=== PATIENT | female | born 2000 | race Caucasian/White ===

== ENCOUNTER 2025-01-09 10:03 | Outpatient (REF) | payer MEDICAID, SELFPAY ==
[2025-01-09 11:06] LABS: MANUAL DIFF FLAG NO
[2025-01-09 11:09] LABS: Basophils Percent Auto 0.6 % (0-2); Eosinophils Absolute Auto 0.1 X10*3/uL (0.0-0.4); Eosinophils Percent Auto 1.3 % (0-4); Hematocrit 40.9 % (37.0-47.0); Hemoglobin 13.4 g/dl (12.0-16.0); Imm Gran Abs Auto 0.02 X10*3/uL (0.00-0.03); Imm Gran Pct Auto 0.4 % (0.0-0.4); Lymphocytes Absolute Auto 1.8 X10*3/uL (1.2-4.9); Lymphocytes Percent Auto 37.3 % (20-40); Mean Corpuscular HGB Conc 32.8 g/dl (31.0-35.0); Mean Corpuscular Hemoglobin 27.6 pg (27.0-33.0); Mean Corpuscular Volume 84.2 fL (80.0-98.0); Monocytes Absolute Auto 0.4 X10*3/uL (0.1-1.2); Monocytes Percent Auto 8.9 % (2-11); Neutrophils Absolute Auto 2.4 x10*3/uL (2.0-8.3); Neutrophils Percent Auto 51.5 % (45-73); Platelet Count 255 X10*3/uL (160-400); Red Blood Count 4.86 X10*6/uL (4.20-5.50); Red Cell Distribution Width 13.2 % (11.0-16.0); White Blood Count 4.7 X10*3/uL (4.8-10.8)
--- OUTSIDE RECORDS SUMMARY | 2025-01-09 11:14 | XMS_ITS | Encounter Summary ---
Author Organization [employer] Address [address] [place] [address] Care Team Providers Care Charging Car Operator Name Role Phone Merly Lu MD Primary Care Provider +1- [phone] Encounter Details Date Type Department Care Team (Latest Contact Info) Description 01/09/2025 Travel Social History Tobacco Use Types Packs/Day Years Used Date Smoking Tobacco: Never Smokeless Tobacco: Never Alcohol Use Standard Drinks/Week Comments Never 0 (1 standard drink = 0.6 oz pur e alcohol) Alcohol Answer Date Recorded How often do you have a drink containing alcohol ? 1 01/09/2025 Average Number of Drinks Not on file 025 Frequency of Binge Drinking Not on file 12/14 Depression Answer Date Recorded Patient Health Questionnaire-9 Score 8 01/09/2025 Patient Health Questionnaire-9 Score 8 01/09/2025 Last PHQ-9: Questionnaire Data Not on file 0 01/09/2025 Housing Stability Answer Date Recorded What is your housing situation today? I have maggie rogers 04/21/[address] you li ve. Do you have problems with any of the following? None of the above 04/21/2024 Food Insecurity Answer Date Recorded Within the past 12 months, y ou worried that your food would run out before you got money to buy more: Often true 12/26/2024 Within the past 12 months,th e food you bought just didn't last and you didn't have enough money to get more: Often true Transportation Answer Date Recorded In the past 12 months, has l ack of transportation kept you from medical appts, meetings, work or from getting things needed for daily living? No 04/21/2024 Utilities Answer Date Recorded In the past 12 months, has t he electric, gas, oil or water company threatened to shut off services in your home? No 04/21/2024 Depression Answer Date Recorded Patient Health Questionnaire-2 Score 2 01/09/2025 Internet Access Answer Date Recorded Internet Access Q1 Yes 12/26/2024 Internet Access Q2 Not on file 12/26/2024 Comments No Sex and Gender Information Value Date Recorded Sex Assigned at Female 09/08/2022 3:54 PM EDT Legal Sex Female 3:54 PM EDT Gender Identity Female 09/08/2022 3:54 PM EDT Sexual Orientation Bisexual 09/13/2022 4: 13 PM EDT Sexual Orientation Straight 09/13/2022 4: 13 PM EDT documented as of this encounter Plan of Treatment Upcoming Encounters Date Type Department Care Team (Late st Contact Info) Description 01/15/2025 9:00 AM EST Procedure Visit [facility] MEDICINE [address] [place] [address] Erin Abdalla CNM [address] [place] [address] documented as of this encounter Visit Diagnoses Not on filedocumented in this encounter Additional Health Concerns Assessment Noted Time PHQ-9 Depression Total Score: 8 01/09/20 10:09 AM EST documented as of this encounter Care Teams Charging Car Operator Relationship Specialty Start Date End Date Merly Lu MD [address] [place] [address] PCP - General Family Medicine 12/02/24 documented as of this encounter
--- OUTSIDE RECORDS SUMMARY | 2025-01-09 11:14 | XMS_ITS | Encounter Summary ---
Author Organization [employer] Address [address] [place] [address] [address], [place] [address] Care Team Providers Care Earth Science Faculty Member Name Role Phone Merly Lu MD Primary Care Provider [phone]- [phone] Reason for Referral * Consultation (Routine) - Authorized Specialty Diagnoses / Procedures Referred By Candy dyson Referred To Contact Midwifery Diagnoses Family planning Merly Lu MD [address] [place] [address] Phone: tel: fax: Erin Abdalla, [place] [address] [place] [address] Phone: tel: fax: Referral ID Status Reason Start Date Expiration Date Visits Requested Visits Authorized [id number] Authorized Consult and Treat 01/09/2025 01/09/2026 1 1 * Consultation (Routine) - Closed Specialty Diagnoses / Procedures Referred By Contstalin t Referred To Contact Physical Therapy Diagnoses Ankle stiffness, right Merly Lu MD [address] [place] [address] Phone: tel: fax: Referral ID Status Reason Start Date Expiration Date V isits Requested Visits Authorized [id number] Closed Specialty Services Required 01/09/2025 01/09/2026 1 1 * Consultation (Routine) - Authorized Specialty Diagnoses / Procedures Referred By Contstalin t Referred To Contact Behavioral Health Diagnoses Adjustment disorder with mixed anxiety and depressed mood Merly Lu MD [address] [place] [address] Phone: tel: fax: Referral ID Status Reason Start Date Expiration Date Visits Requested Visits Authorized [id number] Authorized Specialty Services Required 01/09/2025 01/09/2026 1 1 Encounter Details Date Type Department Care Team (Late st Contact Info) Description 01/09/2025 9:00 AM EST Office Visit [facility] MEDICINE [address] [place], [place] [phone] Merly Lu MD [address] [place] [address] Ankle stiffness, right (Primary Dx); Mild intermittent asthma without complication; Seasonal allergies; Adjustment disorder with mixed anxiety and depressed mood; Major depressive disorder, recurrent episode, moderate (CMS/HCC); Iron deficiency anemia, unspecified iron deficiency anemia type; Family planning; Screening examination for STI; Encounter for hepatitis C screening test for low risk patient; Encounter for immunization; Other specified health status Social History Tobacco Use Types Packs/Day Years [...] PM EDT documented as of this encounter Last Filed Vital Signs Vital Sign Reading Time Taken Comments Blood Pressure 109/67 01/09/2025 8:59 AM EST Pulse 89 01/09/2025 8:59 AM EST Temperature 36.2 ??C (97.1 ??F) 01/09/2025 8:59 AM ES T Respiratory Rate 19 01/09/2025 8:59 AM EST Oxygen Saturation 98% 01/09/2025 8:59 AM EST Inhaled Oxygen Concentration - - Weight 68.5 kg (151 lb) 01/09/2025 8:59 AM EST Height 170.2 cm (5' 7 ) 01/09/2025 8:59 AM EST Body Mass Index 23.65 01/09/2025 8:59 AM EST documented in this encounter Miscellaneous Notes * Assessment & Plan Note - Graciela Riggs - 01/09/2025 9:41 AM ESTAssociated Problem(s): Ankle stiffness, right Injury as a child. Still having decreased ROM on exam. Discussed treatment options. Pt agrees to PT. -referred to PT 01/09/25 * Assessment & Plan Note - Graciela Riggs - 01/09/2025 9:40 AM ESTAssociated Problem(s): Family planning Family planning options discussed. Pt desires IUD. -Discussed getting appt set up with Erin(middle school math teacher) -Side effects and danger signs reviewed -May have some breast tenderness or irregular bleeding for first few months. This is not worrisome. -Report headache, shortness of breath, chest pain, visual changes, abdominal pain, calf pain or jaundice. -Condoms offered * Assessment & Plan Note - Graciela Riggs - 01/09/2025 9:38 AM ESTAssociated Problem(s): Seasonal allergies - continue loratadine (Claritin) 10 MG tablet * Assessment & Plan Note - Graciela Riggs - 01/09/2025 9:38 AM ESTAssociated Problem(s): Other specified health status -next comprehensive annual evaluation due after 01/09/26 -eye care facilitated by [facility] -dental home is encouraged -damian care proxy 01/09/25 * Assessment & Plan Note - Graciela Riggs - 01/09/2025 9:38 AM ESTAssociated Problem(s): Major depressive disorder, recurrent episode, moderate (CMS/HCC) Hx of severe depression in childhood. Not currently established with therapist. -referred to [facility] 01/09/25 * Assessment & Plan Note - Graciela Riggs - 01/09/2025 9:38 AM ESTAssociated Problem(s): Adjustment disorder with mixed anxiety and depressed mood Hx of severe depression in childhood. Not currently established with therapist. -referred to [facility] 01/09/25 * Assessment & Plan Note - Graciela Riggs - 01/09/2025 9:37 AM ESTAssociated Problem(s): Iron deficiency anemia -ordered iron labs 01/09/25 * Assessment & Plan Note - Graciela Riggs - 01/09/2025 9:35 AM ESTAssociated Problem(s): Mild intermittent asthma without complication - continue albuterol 108 (90 Base) MCG/ACT inhaler documented in this encounter Plan of Treatment Upcoming Encounters Date Type Department Care Team (Late st Contact Info) Description 01/15/2025 9:00 AM EST Procedure Visit [facility] [address] [place] [address] Erin Abdalla CN [address] [place] [address] Scheduled Orders Name Type Priority Associated Diagnoses Order Schedule Hepatic Function Panel Lab Routine Major depressive disorder, recurrent episode, moderate (CMS/HCC) Expected: 01/09/2025, Expires: 01/09/2026 Lipid Panel, Standard Lab Routine Major depressive disorder, recurrent episode, moderate (CMS/HCC) Expected: 01/09/2025, Expires: 01/09/2026 Basic Metabolic Panel Lab Routine Major depressive disorder, recurrent episode, moderate (CMS/HCC) Expected: 01/09/2025, Expires: 01/09/2026 Ferritin Lab Routine Iron deficiency anemia, unspecified iron deficiency anemia type Expected: 01/09/2025, Expires: 01/09/2026 Vitamin B12 Lab Routine Iron deficiency anemia, unspecified iron deficiency anemia type Expected: 01/09/2025, Expires: 01/09/2026 TSH with Reflex to Free T4 Lab Routine Iron deficiency anemia, unspecified iron deficiency anemia type Expected: 01/09/2025, Expires: 01/09/2026 Iron And Total Iron Binding Capacity Lab Routine Iron deficiency anemia, unspecified iron deficiency anemia type Expected: 01/09/2025, Expires: 01/09/2026 Chlamydia/N. Gonorrhoeae RNA, TMA, Urine Microbiology Routine Screening examination for STI Expected: 01/09/2025 (Approximate), Expires: 01/09/2026 Syphilis Screen Lab Routine Screening examination for STI Expected: 01/09/2025 (Approximate), Expires: 01/09/2026 HIV-1/2 Antigen and Antibodies, Fourth Generation, with Reflexes Lab Routine Screening examination for STI Expected: 01/09/2025 (Approximate), Expires: 01/09/2026 Hepatitis C Antibody with Reflex to HCV, RNA, Quantitative, Real-Time PCR Lab Routine Encounter for hepatitis C screening test for low risk patient Expected: 01/09/2025 (Approximate), Expires: 01/09/2026 POCT Urine Point of Care Testing Routine Family planning Ordered: 01/09/2025 Scheduled Referrals Name Type Priority Associated Diagnoses Order Schedule Referral to Behavioral Health Outpatient Referral Routine Adjustment disorder with mixed anxiety and depressed mood Expected: 01/09/2025 (Approximate), Expires: 01/09/2026 Referral to Physical Therapy Outpatient Referral Routine Ankle stiffness, right Expected: 01/09/2025 (Approximate), Expires: 01/09/2026 Referral to Gynecology (Erin) Outpatient Referral Routine Family planning Expected: 01/09/2025 (Approximate), Expires: 01/09/2026 documented as of this encounter Procedures Procedure Name Priority Date/Time Associated Diagnosis Comments CBC WITH AUTO DIFFERENTIAL Routine 01/09/2025 10:09 AM EST Iron deficiency anemia, unspecified iron deficiency anemia type documented in this encounter Results * (ABNORMAL) CBC auto differential (01/09/2025 10:09 AM EST) White Blood Count 4.7(L) 4.8 - 10.8 X10*3/uL [facility] Red Blood Count 4.86 4.20 - 5.50 X10*6/uL [facility] Hemoglobin 13.4 12.0 - 16.0 g/dl [facility] Hematocrit 40.9 37.0 - 47.0 % [facility] Mean Corpuscular Volume 84.2 80.0 - 98.0 fL [facility] Mean Corpuscular Hemoglobin 27.6 27.0 - 33.0 pg [facility] Mean Corpuscular HGB Conc 32.8 31.0 - 35.0 g/dl [facility] Red Cell Distribution Width 13.2 11.0 - 16.0 % [facility] Platelet Count 255 160 - 400 X10*3/uL [facility] Mean Platelet Volume 11.0 9.4 - 12.3 fL [facility] Neutrophils Percent Auto 51.5 45 - 73 % [facility] Imm Gran Pct Auto 0.4 0.0 - 0.4 % [facility] Lymphocytes Percent Auto 37.3 20 - 40 % [facility] Monocytes Percent Auto 8.9 2 - 11 % [facility] Eosinophils Percent Auto 1.3 0 - 4 % [facility] Basophils Percent Auto 0.6 0 - 2 % [facility] NRBC Pct Auto 0.0 0.0 - 0.2 /100WBC [facility] Neutrophils Absolute Auto 2.4 2.0 - 8.3 x10*3/uL [facility] Imm Gran Abs Auto 0.02 0.00 - 0.03 X10*3/uL [facility] Lymphocytes Absolute Auto 1.8 1.2 - 4.9 X10*3/uL [facility] Monocytes Absolute Auto 0.4 0.1 - 1.2 X10*3/uL [facility] Eosinophils Absolute Auto 0.1 0.0 - 0.4 X10*3/uL [facility] Basophils Absolute Auto 0.0 0.0 - 0.2 X10*3/uL [facility] NRBC Abs Auto 0.000 0.0 - 0.012 X10*3/uL [facility] Blood Venous blood specimen / Unknown 01/09/2025 10:09 AM EST 01/09/2025 11:04 AM EST Merly Lu MD LAB BLOOD ORDERABLES Final Result Performing Organization Address City/State/[facility] Co de Phone Number [facility] [address] [place] [address] [phone] documented in this encounter Visit Diagnoses Diagnosis Ankle stiffness, right- Primary Mild intermittent asthma without complication Seasonal allergies Allergic rhinitis, cause unspecified Adjustment disorder with mixed anxiety and depressed mood Major depressive disorder, recurrent episode, moderate (CMS/HCC) Major depressive disorder, recurrent episode, moderate Iron deficiency anemia, unspecified iron deficiency anemia type Family planning Other general counseling and advice for contraceptive management Screening examination for STI Encounter for hepatitis C screening test for low risk patient Encounter for immunization Other specified health status documented in this encounter Additional Health Concerns Assessment Noted Time PHQ-9 Depression Total Score: 8 01/09/20 10:09 AM EST documented as of this encounter Care Teams Earth Science Faculty Member Relationship Specialty Start Date End Date Merly Lu MD [address] [place] [address] PCP - General Family Medicine 12/02/24 documented as of this encounter
--- OUTSIDE RECORDS SUMMARY | 2025-01-09 11:14 | XMS_ITS | Encounter Summary ---
Author Organization [facility] Address [address] [place] [address] [address] [place] [address] Care Team Providers Care Maintainability Engineer Name Role Phone Daniela Maki NP Primary Care Provider Unav ailable PcpJustin Unassigned Primary Care Provider Catherine vailable Marilyn Palencia MD Primary Care Provider [phone] Merly Lu MD Primary Care Provider [phone] Encounter Details Date Type Department Care Team (Latest Contact Info) Description 03/20/2019 Abstract [facility] CONVERSIONS Dental, Provider, DDS Social History Tobacco Use Types Packs/Day Years Used Date Smoking Tobacco: Never Assessed Comments Unknown Sex and Gender Information Value Date Recorded [...] 9:00 AM EST Procedure Visit [facility] MEDICINE [address] [place], [place] [phone] Erin Abdalla CNM [address] [place], [place] [phone] documented as of this encounter Visit Diagnoses Not on filedocumented in this encounter Care Teams Maintainability Engineer Relationship Specialty Start Date End Date Daniela Maki NP PCP - General Internal Medicine 10/04/21 05/27/23 PcpJustin Unassigned [address] [place] [address] PCP - General Family Medicine 05/28/23 10/21/23 Marilyn Palencia MD [facility] [place] [address] PCP - General Family Medicine 10/22/23 12/01/24 Merly Lu MD [address] [place] [address] PCP - General Family Medicine 12/02/24 documented as of this encounter
--- OUTSIDE RECORDS SUMMARY | 2025-01-09 11:14 | XMS_ITS | Encounter Summary ---
Author Organization [employer] Address [address] [facility] 7 [place] [address] Care Team Providers Care Messaging Architect Name Role Phone Merly Lu MD Primary Care Provider [phone] Reason for Visit * Reason Onset Date Comments Chart Prep 01/02/2025 Encounter Details Date Type Department Care Team ([facility] st Contact Info) Description 01/02/2025 Telephone [facility] [address] [place] [address] Merly Lu MD [address] [place] [address] Chart Prep Social History Tobacco Use Types Packs/Day Years Used Date Smoking Tobacco: Never Smokeless Tobacco: Never Alcohol Use Standard Drinks/Week Comments Never 0 (1 standard drink = 0.6 oz pur e alcohol) Depression Answer Date Recorded Patient Health Questionnaire-9 Score 0 04/21/2024 Patient Health Questionnaire-9 Score 0 04/21/2024 Last PHQ-9: Questionnaire Data Not on file 0 04/21/2024 Housing Stability Answer Date Recorded What is [...] Answer Date Recorded Patient Health Questionnaire-2 Score 0 04/21/2024 Internet Access Answer Date Recorded Internet Access [...] PM EDT documented as of this encounter Miscellaneous Notes * Telephone Encounter - Shani Rubio [place] - 01/02/2025 1:47 PM EST Chart Prep Labs: not applicable Images: not applicable Vaccines due: Covid Due, Tdap Due, PCV20 Due, and Flu Due Referrals: Optometry Pending appointment on n/a Screenings: PAP Overdue care gaps: Sbirt documented in this encounter Plan of Treatment Upcoming Encounters Date Type Department Care Team (Late st Contact Info) Description 01/15/2025 9:00 AM EST Procedure Visit [facility] [address] [place] [address] Erin Abdalla CNM [address] [place] [address] documented as of this encounter Visit Diagnoses Not on filedocumented in this encounter Additional Health Concerns Assessment Noted Time PHQ-9 Depression Total Score: 0 04/21/20 24 3:16 PM EDT documented as of this encounter Care Teams Messaging Architect Relationship Specialty Start Date End Date Merly Lu MD [address] [place] [address] PCP - General Family Medicine 12/02/24 documented as of this encounter
--- OUTSIDE RECORDS SUMMARY | 2025-01-09 11:15 | XMS_ITS | Clinical Summary ---
Author Organization [facility] Address [address] [place] [address] Care Team Providers Care Substance Abuse Specialist Name Role Phone Unavailable Primary Care Provider Unavailabl e Source Comments PLEASE NOTE, if this patient is a minor, it may be UNLAWFUL to discuss sensitive information that is contained in these records (such as FAMILY PLANNING, MENTAL HEALTH or SUBSTANCE ABUSE) with the minor patient's parent or other person without the patient's specific authorization.[facility] Medications No known medications Active Problems No known active problems Social History Tobacco Use Types Packs/Day Years Used Date Smoking Tobacco: Never Assessed Comments Unknown Sex and Gender Information Value Date Recorded Sex Assigned at Not on file Legal Sex Female 1:13 PM PST Gender Identity Not on file Sexual Orientation Not on file Plan of Treatment Health Maintenance Due Date Last Done Comments HPV Screening 2000 Hepatitis C Screening 2000 Pap + HPV 2000 Tobacco Screening 2000 Chlamydia Screening 2013 Gonorrhea Screening 2013 Imm-Varicella (1 of 2 - 13+ 2-dose series) 2013 HIV Screening 2015 Imm-HPV (1 - 3-dose series) 2015 Relationship Safety Screening/Counseling 2015 Hypertension Screening (#1) 2018 Imm-DTaP/Tdap/Td (1 - Tdap) 2019 Imm-Hepatitis B (1 of 3 - 19 + 3-dose series) 2019 Cervical Cancer Screening 2021 Pap Smear 2021 Azk-OLFTP-49 (3 - 2023- season) 07/13/2024/05/2 021, 03/24/2021 Imm-Influenza (#1) 2024 Alcohol and Drug Screen 11/12/2024 Depression Annual Screen 11/12/2024 Cervical Ablation/Cold-Knife Conization Discontinued Cervical Cryotherapy Discontinued Colposcopy Discontinued Endometrial Biopsy Discontinued Excision/Leep Discontinued HPV Genotyping Discontinued Vaginal Pap Discontinued Vulvoscopy Discontinued
--- OUTSIDE RECORDS SUMMARY | 2025-01-09 11:15 | XMS_ITS | Encounter Summary ---
Author Organization [email or web address] Address [address] [facility] 7 [place] [address] Care Team Providers Care Front Desk Agent Name Role Phone Merly Lu MD Primary Care Provider [phone] Reason for Visit * Reason Comments Pre-visit Planning SDOH screening posit blanka and Tobacco screening negative Encounter Details Date Type Department Care Team ([facility] st Contact Info) Description 12/26/2024 Patient Outreach [facility] MEDICINE [address] [place] [address] Merly Lu MD [address] [place] [address] Pre-visit Planning (SDOH screening positive and Tobacco screening negative) Social History Tobacco Use Types Packs/Day Years [...] PM EDT documented as of this encounter Progress Notes * Blanca Nova - 12/26/2024 11:33 AM EST PILAR Quinn placed successful outbound call to patient for pre-visit planning. Patient name and confirmed. Patient confirms appt date and time, and has transportation arrangements. Biggest concern for appointment at this time is no concerns at the moment. Patient advised to bring to appointment a photo id and insurance card. Appropriate screenings completed in anticipation of appointment. SDOH positive. Patient looking for assistance with Food insecurities. Referral will be placed. documented in this encounter Plan of Treatment Upcoming Encounters Date Type Department Care Team (Late st Contact Info) Description 01/15/2025 9:00 AM EST Procedure Visit [facility] MEDICINE [address] [place] [address] Erin Abdalla CNM [address] [place], [place] [phone] documented as of this encounter Visit Diagnoses Not on filedocumented in this encounter Additional Health Concerns Assessment Noted Time PHQ-9 Depression Total Score: 0 04/21/20 24 3:16 PM EDT documented as of this encounter Care Teams Front Desk Agent Relationship Specialty Start Date End Date Merly Lu MD [address] [place] [address] PCP - General Family Medicine 12/02/24 documented as of this encounter
--- OUTSIDE RECORDS SUMMARY | 2025-01-09 11:15 | XMS_ITS | Encounter Summary ---
Author Organization [employer] Address [address] [facility] 7 [place] [address] Care Team Providers Care Health Occupations Instructor Name Role Phone Merly Lu MD Primary Care Provider [phone]- [phone] Reason for Visit * Reason Comments Care Coordination CHW outreach for SDO H PT-1 and food needs-LVM Encounter Details Date Type Department Care Team (Latest Contact Info) Description 12/26/2024 Patient Outreach [facility] [address] [place] [address] Merly Lu MD [address] [place] [address] Care Coordination (CHW outreach for SDOH PT-1 and food needs-LVM ) Social History Tobacco Use Types Packs/Day Years [...] as of this encounter Progress Notes * Lm Weiss - 12/26/2024 12:53 PM EST CHW Lm Weiss, placed outbound call to patient for assistance with SDOH as a referral was placed by the provider. Patient had screened positive for the following SDOH insecurities. No answer atthis time. Patient's name and were not confirmed. CHW left detailed message and provided contact information requesting return call for assistance. Patient educated on extended clinic hours on Mondays through Wednesdays, and Walk-In Urgent Care Located in [facility] of [facility]. Patient provided with after-hours line for [facility], , which offer night time triage service and option to transfer toon call provider if needed. documented in this encounter Plan of Treatment Upcoming Encounters Date Type Department Care Team ([facility] st Contact Info) Description 01/15/2025 9:00 AM EST Procedure Visit [facility] [address] [place] [address] Erin Abdalla CNM [address] [place] [address] documented as of this encounter Visit Diagnoses Not on filedocumented in this encounter Additional Health Concerns Assessment Noted Time PHQ-9 Depression Total Score: 0 04/21/20 24 3:16 PM EDT documented as of this encounter Care Teams Health Occupations Instructor Relationship Specialty Start Date End Date Merly Lu MD [address] [place] [address] PCP - General Family Medicine 12/02/24 documented as of this encounter
--- OUTSIDE RECORDS SUMMARY | 2025-01-09 11:15 | XMS_ITS | Clinical Summary ---
Author Organization [employer] Address [address] [facility] 7t [place] [address] Care Team Providers Care Drop Man Name Role Phone Merly Lu MD Primary Care Provider +1- [phone] Allergies No known active allergies Medications albuterol 108 (90 Base) MCG/ACT inhalerIndicatio ns:Mild intermittent asthma without complication Inhale 2 puffs every 4 (four) hours if needed for wheezing. 18 g 5 026 Active loratadine (Claritin) 10 MG tabletIndication s:Seasonal allergies Take 1 tablet (10 mg) by mouth Once per day. 30 tablet 11 5 026 Active erythromycin (Romycin) 5 MG/GM ophthalmic ointmentIndicati ons:Conjunctival Infection Apply Amount per Dose: 0.25 inch (~0.5 cm) per dose. TID for 1 week. 15 g 5 025 Discontinued Hospital, Clinic, or Other Facility Administered Medication Ordered Dose Route Frequency Start Date End Date Status medroxyPROGESTERone (Depo-Provera) injection 150 mgIndications:Encounter for surveillance of injectable contraceptive 150 mg IM Every 3 months 01/07/2024 Active Active Problems Problem Noted Date Diagnosed Date Other specified health status 01/09/2025 Overview (01/09/2025): -next comprehensive annual evaluation due after 01/09/26 -eye care facilitated by [facility] -dental home is encouraged -damian care proxy 01/09/25 Assessment & Plan (01/09/2025 9:38 AM EST): -next comprehensive annual evaluation due after 01/09/26 -eye care facilitated by [facility] -dental home is encouraged -damian care proxy 01/09/25 Ankle stiffness, right 01/09/2025 Overview (01/09/2025): Injury as a child. Still having decreased ROM on exam. Discussed treatment options. Pt agrees to PT. -referred to PT 01/09/25 Assessment & Plan (01/09/2025 9:41 AM EST): Injury as a child. Still having decreased ROM on exam. Discussed treatment options. Pt agrees to PT. -referred to PT 01/09/25 Family planning 01/09/2025 Overview (01/09/2025): Family planning options discussed. Pt desires IUD. -Discussed getting appt set up with Erin(car jockey) -Side effects and danger signs reviewed -May have some breast tenderness or irregular bleeding for first few months. This is not worrisome. -Report headache, shortness of breath, chest pain, visual changes, abdominal pain, calf pain or jaundice. -Condoms offered Assessment & Plan (01/09/2025 9:40 AM EST): Family planning options discussed. Pt desires IUD. -Discussed getting appt set up with Erin(car jockey) -Side effects and danger signs reviewed -May have some breast tenderness or irregular bleeding for first few months. This is not worrisome. -Report headache, shortness of breath, chest pain, visual changes, abdominal pain, calf pain or jaundice. -Condoms offered Hordeolum externum of right lower eyelid 025 Assessment & Plan (12/02/2024 11:06 AM EST): - Prescribed erythromycin (Romycin) 5 MG/GM ophthalmic ointment 12/02/24 - Prescribed Referred to [facility] 12/02/24 - ER precautions discussed. 12/02/24 - Seek medical attention for worsening symptoms. 12/02/24 Mild intermittent asthma without complication Overview (01/09/2025): - continue albuterol 108 (90 Base) MCG/ACT inhaler Assessment & Plan (01/09/2025 9:35 AM EST): - continue albuterol 108 (90 Base) MCG/ACT inhaler Assessment & Plan (12/02/2024 11:15 AM EST): - Prescribed albuterol 108 (90 Base) MCG/ACT inhaler 12/02/24 - ER precautions discussed. 12/02/24 - Seek medical attention for worsening symptoms. 12/02/24 Seasonal allergies 12/02/2024 Overview (01/09/2025): - continue loratadine (Claritin) 10 MG tablet Assessment & Plan (01/09/2025 9:38 AM EST): - continue loratadine (Claritin) 10 MG tablet Assessment & Plan (12/02/2024 11:16 AM EST): - Prescribed loratadine (Claritin) 10 MG tablet 12/02/24 - ER precautions discussed. 12/02/24 - Seek medical attention for worsening symptoms. 12/02/24 Adjustment disorder with mixed anxiety and depre ssed mood 03/15/2023 Overview (01/09/2025): Hx of severe depression in childhood. Not currently established with therapist. -referred to [facility] 01/09/25 Assessment & Plan (01/09/2025 9:38 AM EST): Hx of severe depression in childhood. Not currently established with therapist. -referred to [facility] 01/09/25 Assessment & Plan (03/15/2023 5:06 PM EDT): Pt presents to therapy wanting to address grief that they she has avoided. Pt notes that she had two family losses over the past year. Generalized anxiety disorder 07/13/2022 Major depressive disorder, recurrent episode, mo derate 07/13/2022 Overview (01/09/2025): Hx of severe depression in childhood. Not currently established with therapist. -referred to [facility] 01/09/25 Assessment & Plan (01/09/2025 9:38 AM EST): Hx of severe depression in childhood. Not currently established with therapist. -referred to [facility] 01/09/25 Assessment & Plan (04/26/2023 10:54 AM EDT): Pt's Presents with sadness which can be attributed to experiences of grief. Pt utilizes session to address ways she may be distracting from her grief and how to attune more to the losses she has experienced. Pt also discussed complex family dynamics and the role in the family that her grandfather had. Assessment & Plan (04/04/2023 9:23 AM EDT): Pt presents with depressed mood( constricted affect) and tearfulness which can be attributed to grief after recently losing her grandfather which has compounded upon other losses. Arthralgia of ankle 12/15/2021 Bunion of unspecified foot 12/15/2021 Pes planus, congenital 12/15/2021 Astigmatism, bilateral 09/01/2021 Glaucoma suspect 09/01/2021 Refractive amblyopia, bilateral 09/01/2021 Asthma, exercise induced 06/07/2021 Iron deficiency anemia 06/07/2021 Overview (01/09/2025): No results found for: FERRITIN , HGB , HEMATOCRIT , IRONTOTAL -ordered iron labs 01/09/25 Assessment & Plan (01/09/2025 9:37 AM EST): -ordered iron labs 01/09/25 Migraine headache with aura 06/07/2021 Allergic rhinitis 07/07/2015 Resolved Problems Problem Noted Date Diagnosed Date Resolved Date Encounter for immunization 12/02/2024 0 01/09/2025 Assessment & Plan (12/02/2024 11:16 AM EST): - Ordered TDAP VACCINE 7 yrs + 12/02/24 - ER precautions discussed. 12/02/24 - Seek medical attention for worsening symptoms. 12/02/24 Sprain of metacarpophalangea l joint of left thumb 01/05/2024 01/09/2025 Assessment & Plan (01/06/2024 10:15 AM EST): - Patient with now improved pain, swelling and bruising of base of left thumb after fall on outstretched hand 1 week prior - No significant tenderness or restrictions to ROM on exam Plan: - R/o less likely carpal bone fracture with xray - Continue frequent icing - Use tylenol and ibuprofen as needed - Continue use of wrist/thumb brace with sleep and with activity - Follow-up PRN Viral upper respiratory tract infection 04/12/2023 01/09/2025 Assessment & Plan (04/12/2023 11:01 PM EDT): Patient presenting with what is likely a viral URI exacerbated by her history of seasonal allergies. Reassuring that her COVID test have been negative. Also reassuring that her symptoms are actually improving. Supportive care was discussed with patient today-I am recommending that she use Flonase 1 puff twice daily into her nasal symptoms go away. I am also recommending that she rest and stay hydrated, and that she continue as needed Tylenol as needed for any muscle aches. Patient to follow-up if needed. Myopia, bilateral 09/01/2021 01/09/2025 Pain of foot 06/07/2021 01/09/2025 Myopia 02/11/2019 01/09/2025 Mild depression 02/11/2019 01/09/2025 Encounters Date Type Department Care Team Description 01/09/2025 9:00 AM EST Office Visit [facility] [address] [place] [address] [phone] Merly Lu MD Ankle stiffness, right (Primary Dx); Mild intermittent asthma without complication; Seasonal allergies; Adjustment disorder with mixed anxiety and depressed mood; Major depressive disorder, recurrent episode, moderate (CMS/HCC); Iron deficiency anemia, unspecified iron deficiency anemia type; Family planning; Screening examination for STI; Encounter for hepatitis C screening test for low risk patient; Encounter for immunization; Other specified health status 01/09/2025 Travel 01/02/2025 Telephone [facility] [address] [place] [phone] Merly Lu MD Chart Prep 12/26/2024 Patient Outreach [facility] [address] [place] [phone] Merly Lu MD Care Coordination (CHW outreach for SDOH PT-1 and food needs-LVM ) 12/26/2024 Patient Outreach [facility] [address] [place] [phone] Merly Lu MD Pre-visit Planning (SDOH screening positive and Tobacco screening negative) 12/02/2024 11:00 AM EST Office Visit [facility] [address] [place] [phone] Merly Lu MD Hordeolum externum of right lower eyelid (Primary Dx); Mild intermittent asthma without complication; Seasonal allergies; Encounter for immunization 12/02/2024 Travel from Last 3 Months Immunizations Name Administration Dates Next Due DTP / HiB 2000 DTaP 09/14/2004, 4,07/24/2002,04/16,01/08/2001 HPV 9-Valent 07/07/2015 HPV, Quadrivalent 05/13/2014,02/23/2014 Hep A, ped/adol, 2 dose 07/07/2015,02/23/2014 Hep B, Adolescent or Pediatric 03/22/2001,2000,2000 Hib ([facility]) 02/11/2002,04/16/2001,01/08/2001 INFLUENZA VACCINE QUADRIVALE NT RECOMBINANT PRESERVATIVE FREE RIV4 10/04/2021 IPV 09/14/2004, 1,01/08/2001,11/06 Influenza Injectable Quadriv alant Preservative Free IIV4 MDCK 10/12/2020 Influenza injectable quadriv alent preservative free 08/08/2017,08/08/2016 Influenza, Split (incl. bita fied surface antigen) 10/15/2012 Influenza, seasonal, injecta ble, preservative free 01/09/2025 MMR 09/14/2004,10/15/2001 Meningococcal MCV4P ACYW-135 08/08/2017,05/07/20 12 Pfizer Covid-19 Vaccine 12+ 01/09/2025 Pneumococcal Conjugate PCV 20 01/09/2025 Tdap 01/09/2025,05/07/2012 Varicella 06/26/2006,07/31/2002 Family History Medical History Relation Name Comments Diabetes Maternal Grandfather Diabetes Maternal Grandmother Breast cancer Mother's Sister Hypertension Paternal Grandmother Relation Name Status Comments Brother Alive Maternal Grandfather Maternal Grandmother Mother's Sister Paternal Grandmother Social History Tobacco Use Types Packs/Day Years Used Date Smoking Tobacco: Never Smokeless Tobacco: Never Tobacco Cessation:Counseling Given: Not Answered Alcohol Use Standard Drinks/Week Comments Never 0 [...] Orientation Straight 09/13/2022 4: 13 PM EDT Last Filed Vital Signs Vital Sign Reading [...] Mass Index 23.65 01/09/2025 8:59 AM EST Plan of Treatment Upcoming Encounters Date Type Department Care Team (Late st Contact Info) Description 01/15/2025 9:00 AM EST Procedure Visit [facility] [address] [place] [address] Erin Abdalla, [facility] [address] [place] [address] Health Maintenance Due Date Last Done Comments Family Planning (PISQ) 2015 Pap Smear 10/04/2024 10/04/2021, 10/04/2021 SDOH Screening 12/26/2025 12/26/2024 Alcohol/Substance Use Screening 01/09/2026 01/09/2025 Depression Screening 01/09/2026 01/09/2025, 01/09/20 Tobacco Screening 01/09/2026 01/09/2025 DTaP/Tdap/Td Vaccines (8 - Td or Tdap) 01/09/2035 01/09/2025, 05/07/2012, 09/14/2004, Additional history exists Zoster Vaccines (1 of 2) 2050 RSV Patients and Patients Aged 60 years or older (1 - 1-dose 75+ series) 2075 Hepatitis B Vaccines Completed 03/22/2001, 01/08/2001, 2000 HIB Vaccines Completed 02/11/2002, 03/2001, 01/08/2001, Additional history exists IPV Vaccines Completed 09/14/2004, 03/13, 01/08/2001, Additional history exists HPV Vaccines Completed 07/07/2015, 12/2013, 02/23/2014 Hepatitis A Vaccines Completed 07/07/2015, 02/24/20 14 Meningococcal Vaccine Completed 08/08/2017, 012 HIV Screening Completed 04/21/2024, 10/12, 06/07/2021 Hepatitis C Screening Completed 04/21/2024, 021 COVID-19 Vaccine Completed 01/09/2025, 03/2021, 03/24/2021 Influenza Vaccine Completed 01/09/2025, , 10/12/2020, Additional history exists Pneumococcal Vaccine: Pediatrics (0 to 5 Years) and At-Risk Patients (6 to 49) Years) Completed 01/09/2025 RSV under 20 months Aged Out No longe r eligible based on patient's age to complete this topic Rotavirus Vaccines Aged Out No longer eligible based on patient's age to complete this topic Procedures Procedure Name Priority Date/Time Associated Diagnosis Comments CBC WITH AUTO DIFFERENTIAL Routine 01/09/2025 10:09 AM EST Iron deficiency anemia, unspecified iron deficiency anemia type HEPATITIS C AB W/REFL TO HCV RNA, QN, PCR Routine 04/21/2024 4:52 PM EDT Routine screening for STI (sexually transmitted infection) Screening for viral disease HIV 1 RNA, QN PCR W/RFL ASTRID (RTI,PI,INTEGRASE) Routine 04/21/2024 4:52 PM EDT Screening for HIV (human immunodeficiency virus) [facility]OR[facility] LAB RESULT Routine 10/04/2021 12:00 AM EST from Last 3 Months or Most Recently Relevant to Health Maintenance Results * (ABNORMAL) CBC auto differential (01/09/2025 10:09 AM EST) White Blood Count 4.7(L) 4.8 - 10.8 X10*3/uL [facility] Red Blood Count 4.86 4.20 - 5.50 X10*6/uL [facility] Hemoglobin 13.4 12.0 - 16.0 g/dl [facility] Hematocrit 40.9 37.0 - 47.0 % [facility] Mean Corpuscular Volume 84.2 80.0 - 98.0 fL [facility] Mean Corpuscular Hemoglobin 27.6 27.0 - 33.0 pg [facility] Mean Corpuscular HGB Conc 32.8 31.0 - 35.0 g/dl [facility] Red Cell Distribution Width 13.2 11.0 - 16.0 % [facility] Platelet Count 255 160 - 400 X10*3/uL [facility] Mean Platelet Volume 11.0 9.4 - 12.3 fL [facility] Neutrophils Percent Auto 51.5 45 - 73 % [facility] Imm Gran Pct Auto 0.4 0.0 - 0.4 % [facility] Lymphocytes Percent Auto 37.3 20 - 40 % [facility] Monocytes Percent Auto 8.9 2 - 11 % [facility] Eosinophils Percent Auto 1.3 0 - 4 % [facility] Basophils Percent Auto 0.6 0 - 2 % [facility] NRBC Pct Auto 0.0 0.0 - 0.2 /100WBC [facility] Neutrophils Absolute Auto 2.4 2.0 - 8.3 x10*3/uL [facility] Imm Gran Abs Auto 0.02 0.00 - 0.03 X10*3/uL [facility] Lymphocytes Absolute Auto 1.8 1.2 - 4.9 X10*3/uL [facility] Monocytes Absolute Auto 0.4 0.1 - 1.2 X10*3/uL [facility] Eosinophils Absolute Auto 0.1 0.0 - 0.4 X10*3/uL [facility] Basophils Absolute Auto 0.0 0.0 - 0.2 X10*3/uL [facility] NRBC Abs Auto 0.000 0.0 - 0.012 X10*3/uL [facility] Blood Venous blood specimen / Unknown 01/09/2025 10:09 AM EST 01/09/2025 11:04 AM EST Merly Lu MD LAB BLOOD ORDERABLES Final Result [facility] [address] [place] [address] [phone] * HIV-1 RNA, Quantitative, Real-Time PCR with Reflex to Genotype (RTI, PI, Integrase) (04/21/2024 4:52 PM EDT) Pathologist [facility] HIV 1 RNA, QN PCR NOT DETECTED copies/mL [facility], HIV 1 RNA, QN PCR NOT DETECTED Log copies/mL [facility], Comment: REFERENCE RANGE: ?NOT DETECTED ??copies/mL ?NOT DETECTED ??Log copies/mL This test was performed using Real-Time Polymerase Chain Reaction. Reportable range is 20 to 10,000,000 copies/mL (1.30-7.00 Log copies/mL). Blood 04/21/2024 4:52 PM EDT 04/21/2024 4:55 PM EDT Matthias Colvin MD LAB BLOOD ORDERABLES Final Resu lt [facility] [address] [facility], [facility], [place] [address] [employer] [facility], [address] [place] [address] * Hepatitis C Antibody with Reflex to HCV, RNA, Quantitative, Real-Time PCR (04/21/2024 4:52 PM EDT) Hepatitis C Antibody NON-REACT LUIS NON-REACT LUIS [employer] [facility] Comment: HCV antibody was non-reactive. There is no laboratory evidence of HCV infection. In most cases, no further action is required. However, if recent HCV exposure is suspected, a test for HCV RNA (test code 58984) is suggested. For additional information please refer to http://education.Rapp [employer] Up/faq/IQJ50u0 (This link is being provided for informational/ educational purposes only.) Blood Venous blood specimen / Unknown 04/21/2024 4:52 PM EDT 04/21/2024 4:55 PM EDT Matthias Colvin MD LAB BLOOD ORDERABLES Final Resu lt [facility] [address], [place] [address] [employer] [facility] [address] [place] [address] * [facility]ISTORICAL [facility] LAB RESULT (10/04/2021 12:00 AM EST) Pap smear, previous NONE [facility] Pap smear, previous biopsy NONE [facility] vaginal Pap smear results Negative for intraepithelial lesion or malignancy. [facility] pap smear, clinical information This Pap test has been evaluated with computer assisted technology. [facility] 10/04/2021 us Daniela Maki NP HISTORICAL/NON ORDERABLE LA BS Final Result [facility] [address] from Last 3 Months or Most Recently Relevant to Health Maintenance Insurance [employer] Care Teams Drop Man Relationship Specialty Start Date End Date Tabitha, MD Merly [address] [place] [address] PCP - General Family Medicine 12/02/24
[2025-01-09 11:34] LABS: Alanine Aminotransferase 12 U/L (0-31); Alkaline Phosphatase 70 U/L (39-117); Anion Gap 10 (12-20); Aspartate Amino Transferase 18 U/L (5-31); Bilirubin Direct 0.1 mg/dL (0.0-0.5); Bilirubin Total 0.3 mg/dL (0.0-1.0); Blood Urea Nitrogen 8 mg/dL (9-16); Calcium 9.4 mg/dL (8.4-10.2); Carbon Dioxide 25 mmol/L (22-29); Chloride 107 mmol/L (96-108); Cholesterol 151 mg/dL (<200); Estimated Glomerular Filt Rate > 60; Glucose Random 80 mg/dL (60-115); HDL Cholesterol 67 mg/dL (>40); Iron 55 mcg/dL (30-160); LDL Cholesterol Calculated 74 mg/dL (<100); Percent Iron Saturation 17 % (15-50); Potassium 3.9 mmol/L (3.3-5.1); Sodium 138 mmol/L (135-145); Total Iron Binding Capacity 329 mcg/dL (228-428); Total Protein 7.4 g/dL (6.5-8.0); Triglycerides 52 mg/dL (<150); Unsaturated Iron Binding 274 ug/dL
[2025-01-09 11:46] LABS: HIV AB/AG Nonreactive (Nonreactive); HIV Num 1 0.07 S/CO (0.00-0.99); ~HepC Num1 0.17 S/CO (0.00-0.79); ~Hepatitis C Antibody Nonreactive (Nonreactive)
[2025-01-09 11:52] LABS: Ferritin 10 ng/mL (10-122); TSH reflex Free T4 0.43 uIU/mL (0.32-4.0)
[2025-01-09 11:54] LABS: Vitamin B12 418 pg/mL (200-900)
[2025-01-09 12:04] LABS: Syphilis Screen Nonreactive (Nonreactive)
[2025-01-10 16:43] LABS: CT PCR NOT DETECTED (Not Detect.); NG PCR NOT DETECTED (Not Detect.)
== END 2025-01-09 10:04 | disposition home or self-care (01) ==
LOC: HO.HHCL 10:03
PROVIDERS: Visit Provider Family Medicine
DX: D50.9 Iron deficiency anemia, unspecified (principal); F33.1 Major depressive disorder, recurrent, moderate; Z11.3 Encounter for screening for infections with a predominantly sexual mode of transmission; Z11.59 Encounter for screening for other viral diseases
CPT/HCPCS: 36415; 80048; 80061; 80076; 82607; 82728; 83540; 84443; 85025; 86780; 86803; 87389; 87491; 87591

== ENCOUNTER 2025-01-15 17:52 | Outpatient (REF) | payer MEDICAID, SELFPAY ==
--- OUTSIDE RECORDS SUMMARY | 2025-01-15 19:42 | XMS_ITS | Encounter Summary ---
Author Organization [employer] Address [address] [facility] 7 [place] [address] Care Team Providers Care Company Manager Name Role Phone Merly Lu MD Primary Care Provider +1- [phone] Reason for Visit * Reason Comments Care Coordination CHW outreach for SDO H PT-1 and food needs-LVM Encounter Details Date Type Department Care Team (Latest Contact Info) Description 12/26/2024 Patient Outreach [facility] [address] [place] [address] Merly Lu MD [address] [place] [address] Care Coordination (CHW outreach for SDOH PT-1 [...] Wednesdays, and Walk-In Urgent Care Located in [facility]. Patient provided with after-hours line for [facility], , which offer night time triage service and option to transfer toon call provider if needed. documented in this encounter Plan of Treatment Upcoming Encounters Date Type Department Care Team ([facility] st Contact Info) Description 02/16/2025 2:00 PM EDT Office Visit [facility] [address] [place] [address] Erin Abdalla CNM [address] [place] [address] documented as of this encounter Visit Diagnoses Not on filedocumented in this encounter Additional Health Concerns Assessment Noted Time PHQ-9 Depression Total Score: 0 04/21/20 24 3:16 PM EDT documented as of this encounter Care Teams Company Manager Relationship Specialty Start Date End Date Merly Lu MD [address] [place] [address] PCP - General Family Medicine 12/02/24 documented as of this encounter
--- OUTSIDE RECORDS SUMMARY | 2025-01-15 19:42 | XMS_ITS | Encounter Summary ---
Author Organization [employer] Address [address] [facility] 7t [place] [address] Care Team Providers Care Top Frame Maker Name Role Phone Merly Lu MD Primary Care Provider +1- [phone] Encounter Details Date Type Department Care Team [...] Care Team (Late st Contact Info) Description 02/16/2025 2:00 PM EDT Office Visit [facility] [address] [place] [address] Erin Abdalla CNM [address] [place] [address] documented as of this encounter Visit Diagnoses Not on filedocumented in this encounter Additional Health Concerns Assessment Noted Time PHQ-9 Depression Total Score: 8 01/09/20 25 10:09 AM EST documented as of this encounter Care Teams Top Frame Maker Relationship Specialty Start Date End Date Merly Lu MD [address] [place] [address] PCP - General Family Medicine 12/02/24 documented as of this encounter
--- OUTSIDE RECORDS SUMMARY | 2025-01-15 19:42 | XMS_ITS | Encounter Summary ---
Author Organization [employer] Address [address] [facility] 7t [place] [address] Care Team Providers Care Manager Surgical Name Role Phone Merly Lu MD Primary Care Provider +1- [phone] Encounter Details Date Type Department Care Team ([facility] st Contact Info) Description 01/12/2025 Telephone [facility] [address] [place], [place] [phone] Merly Lu MD [address] [place], [place] [phone] Social History Tobacco Use Types Packs/Day Years [...] encounter Miscellaneous Notes * Telephone Encounter - Merly Lu MD - 01/12/2025 11:19 AM EST Ok to change follow up with me for physical in 1 years. Erin will do pap the day of IUD. Ok to let pt know. Thank you. documented in this encounter Plan of Treatment Upcoming Encounters Date Type Department Care Team ([facility] st Contact Info) Description 02/16/2025 2:00 PM EDT Office Visit [facility] [address] [place] [address] Erin Abdalla CNM [address] [place] [address] documented as of this encounter Visit Diagnoses Not on filedocumented in this encounter Additional Health Concerns Assessment Noted Time PHQ-9 Depression Total Score: 8 01/09/20 25 10:09 AM EST documented as of this encounter Care Teams Manager Surgical Relationship Specialty Start Date End Date Merly Lu MD [address] [place] [phone] PCP - General Family Medicine 12/02/24 documented as of this encounter
--- OUTSIDE RECORDS SUMMARY | 2025-01-15 19:42 | XMS_ITS | Encounter Summary ---
Author Organization [employer] Address [address] [facility] 7 [place] [address] Care Team Providers Care Director Of Strategic Alliances Name Role Phone Merly Lu MD Primary Care Provider +1- [phone] Reason for Visit * Reason Comments Pre-visit Planning SDOH screening posit blanka and Tobacco screening negative Encounter Details Date Type Department Care Team ([facility] st Contact Info) Description 12/26/2024 Patient Outreach [facility] [address] [place] [address] Merly Lu MD [address] [place] [address] Pre-visit Planning (SDOH screening positive and Tobacco [...] as of this encounter Progress Notes * Blacna Nova - 12/26/2024 11:33 AM EST PILAR [...] Description 02/16/2025 2:00 PM EDT Office Visit [facility] [address] [place] [address] Erin Abdalla CNM [address] [place], [place] [phone] documented as of this encounter Visit Diagnoses Not on filedocumented in this encounter Additional Health Concerns Assessment Noted Time PHQ-9 Depression Total Score: 0 04/21/20 24 3:16 PM EDT documented as of this encounter Care Teams Director Of Strategic Alliances Relationship Specialty Start Date End Date Merly Lu MD [address] [place] [address] PCP - General Family Medicine 12/02/24 documented as of this encounter
--- OUTSIDE RECORDS SUMMARY | 2025-01-15 19:42 | XMS_ITS | Encounter Summary ---
Author Organization [facility] Address [address] [place] [address] 7 [place] [address] Care Team Providers Care Wedding Decorator Name Role Phone Daniela Maki NP Primary Care Provider Unav ailable PcpJustin Unassigned Primary Care Provider Catherine vailable Marilyn Palencia MD Primary Care Provider [phone] Merly Lu MD Primary Care Provider [phone] Encounter Details Date Type Department Care Team (Latest Contact Info) Description 03/20/2019 Abstract [facility] CONVERSIONS Dental, Provider, DDS Social History Tobacco [...] 02/16/2025 2:00 PM EDT Office Visit [facility] MEDICINE [address] [place], [place] [phone] Erin Abdalla CNM [address] [place], [place] [phone] documented as of this encounter Visit Diagnoses Not on filedocumented in this encounter Care Teams Wedding Decorator Relationship Specialty Start Date End Date Daniela Maki NP PCP - General Internal Medicine 10/04/21 05/27/23 PcpJustin Unassigned [address] [place] [address] PCP - General Family Medicine 05/28/23 10/21/23 Marilyn Palencia MD [address] [place] [address] PCP - General Family Medicine 10/22/23 12/01/24 Merly Lu MD [address] [place] [phone] PCP - General Family Medicine 12/02/24 documented as of this encounter
--- OUTSIDE RECORDS SUMMARY | 2025-01-15 19:42 | XMS_ITS | Encounter Summary ---
Author Organization [facility] [employer] [employer] Address [address] [facility] 7 [place] [address] Care Team Providers Care Contamination Consultant Name Role Phone Merly Lu MD Primary Care Provider [phone] Reason for Visit * Reason Onset Date Comments Chart Prep 01/02/2025 Encounter Details Date Type Department Care Team ([facility] st Contact Info) Description 01/02/2025 Telephone [facility] MEDICINE [address] [place] [address] Merly Lu MD [address] [place] [address] Chart Prep Social History Tobacco Use Types [...] Description 02/16/2025 2:00 PM EDT Office Visit [facility] MED[facility] [address] [place] [address] Erin Abdalla CNM [address] [place] [address] documented as of this encounter Visit Diagnoses Not on filedocumented in this encounter Additional Health Concerns Assessment Noted Time PHQ-9 Depression Total Score: 0 04/21/20 24 3:16 PM EDT documented as of this encounter Care Teams Contamination Consultant Relationship Specialty Start Date End Date Merly Lu MD [address] [place] [address] PCP - General Family Medicine 12/02/24 documented as of this encounter
--- OUTSIDE RECORDS SUMMARY | 2025-01-15 19:42 | XMS_ITS | Clinical Summary ---
Author Organization [facility] Address [address] [facility] 7 [place] [address] Care Team Providers Care Waxing Machine Operator Helper Name Role Phone Merly Lu MD Primary Care Provider [phone] Allergies No known active allergies Medications albuterol [...] Route Frequency Start Date End Date Status lidocaine 2 % gelIndications:Enco unter for initial insertion of intrauterine contraceptive device UR As needed 01/15/2025 Active medroxyPROGESTERone (Depo-Provera) injection 150 mgIndications:Encou nter for surveillance of injectable contraceptive 150 mg IM Every 3 months 01/07/2024 5 Discontinued Levonorgestrel intrauterine device 20.1 mcg/dayIndications: Encounter for initial insertion of intrauterine contraceptive device 20.1 mcg/day IU Once 01/15/2025 5 Ended ibuprofen tablet 400 mgIndications:Encou nter for initial insertion of intrauterine contraceptive device 400 mg PO Once 01/15/2025 5 Ended Active Problems Problem Noted Date Diagnosed Date Other specified health status 01/09/2025 Overview (01/09/2025): -next comprehensive annual evaluation due after 01/09/26 -eye care facilitated by [facility] -dental home is encouraged -damian care proxy 01/09/25 Assessment & Plan (01/09/2025 9:38 AM EST): -next comprehensive annual evaluation due after 01/09/26 -eye care facilitated by [facility] -dental home is encouraged -damian care proxy [...] IUD. -Discussed getting appt set up with Erin(preassembler and inspector) -Side effects and danger signs reviewed -May have some breast tenderness or irregular bleeding for first few months. This is not worrisome. -Report headache, shortness of breath, chest pain, visual changes, abdominal pain, calf pain or jaundice. -Condoms offered Assessment & Plan (01/09/2025 9:40 AM EST): Family planning options discussed. Pt desires IUD. -Discussed getting appt set up with Erin(preassembler and inspector) -Side effects and danger signs reviewed -May [...] ophthalmic ointment 12/02/24 - Prescribed Referred to [facility] 12/02/24 - ER precautions [...] Not currently established with therapist. -referred to N 01/09/25 Assessment & Plan (01/09/2025 9:38 AM EST): Hx of severe depression in childhood. Not currently established with therapist. -referred to [facility] 01/09/25 Assessment & Plan (03/15/2023 5:06 PM EDT): Pt presents to therapy wanting to address grief that they she has avoided. Pt notes that she had two family losses over the past year. Generalized anxiety disorder 07/13/2022 Major depressive disorder, recurrent episode, mo derate 07/13/2022 Overview (01/09/2025): Hx of severe depression in childhood. Not currently established with therapist. -referred to [facility] 01/09/25 Assessment & Plan (01/09/2025 9:38 AM EST): Hx of severe depression in childhood. Not currently established with therapist. -referred to [facility] 01/09/25 Assessment & Plan (04/26/2023 10:54 AM [...] Encounters Date Type Department Care Team Description 01/15/2025 9:00 AM EST Procedure Visit [address] [address] Erin Abdalla CNM Cervical cancer screening (Primary Dx); Encounter for initial insertion of intrauterine contraceptive device 01/15/2025 Travel 01/12/[address] [address] Merly Lu MD 01/09/2025 9:00 AM EST Office Visit [address] [address] Merly Lu MD Ankle stiffness, right (Primary [...] specified health status 01/09/2025 Travel 01/02/[address] [address] Merly Lu MD Chart Prep 12/26/2024 Patient Outreach [address] [address] Merly Lu MD Care Coordination (CHW outreach for SDOH PT-1 and food needs-LVM ) 12/26/2024 Patient Outreach [address] [address] Merly Lu MD Pre-visit Planning (SDOH screening positive and Tobacco screening negative) 12/02/2024 11:00 AM EST Office Visit [facility] [address] [place] [phone] Merly Lu MD Hordeolum externum of right lower eyelid (Primary Dx); Mild intermittent asthma without complication; Seasonal allergies; Encounter for immunization 12/02/2024 Travel from Last 3 Months Immunizations Name Administration Dates Next Due DTP / HiB 2000 DTaP 09/14/2004, 4,07/24/2002,04/16,01/08/2001 HPV 9-Valent 07/07/2015 HPV, Quadrivalent 05/13/2014,02/23/2014 Hep A, ped/adol, 2 dose 07/07/2015,02/23/2014 Hep B, Adolescent or Pediatric 03/22/2001,2000,2000 Hib (HbOC) 02/11/2002,04/16/2001,01/08/2001 INFLUENZA VACCINE QUADRIVALE NT RECOMBINANT PRESERVATIVE [...] Sign Reading Time Taken Comments Blood Pressure 108/70 01/15/2025 9:04 AM EST Pulse 88 01/15/2025 9:04 AM EST Temperature 36.1 ??C (96.9 ??F) 01/15/2025 9:04 AM ES T Respiratory Rate 20 01/15/2025 9:04 AM EST Oxygen Saturation 96% 01/15/2025 9:04 AM EST Inhaled Oxygen Concentration - - Weight 70.7 kg (155 lb 12.8 oz) 01/15/2025 9:04 AM EST Height 170.2 cm (5' 7 ) 01/15/2025 9:04 AM EST Body Mass Index 24.4 01/15/2025 9:04 AM EST Plan of Treatment Upcoming Encounters Date Type Department Care Team ([facility] st Contact Info) Description 02/16/2025 2:00 PM EDT Office Visit [facility] MEDICINE [address] [place] [address] Erin Abdalla, [place] [address] [place] [address] Health Maintenance Due Date Last Done Comments Pap Smear 10/04/2024 10/04/2021, 10/04/2021 SDOH Screening 12/26/2025 12/26/2024 Alcohol/Substance Use Screening 01/09/2026 01/09/2025 Depression Screening 01/09/2026 01/09/2025, 01/09/20 Tobacco Screening 01/09/2026 01/09/2025 Family Planning (PISQ) 01/15/2026 01/15/2025 DTaP/Tdap/Td Vaccines (8 - Td or Tdap) [...] 02/24/20 14 Meningococcal Vaccine Completed 08/08/2017, 012 COVID-19 Vaccine Completed 01/09/2025, 03/2021, 03/24/2021 HIV Screening Completed 01/09/2025, 04/12, 10/22/2023, Additional history exists Hepatitis C Screening Completed 01/09/2025 , 04/21/2024, 06/07/2021 Influenza Vaccine Completed 01/09/2025, , 10/12/2020, Additional [...] Procedure Name Priority Date/Time Associated Diagnosis Comments POCT , URINE Routine 01/15/2025 9:13 AM EST Encounter for initial insertion of intrauterine contraceptive device POCT , URINE Routine 01/09/2025 11:41 AM EST Family planning CHLAMYDIA/N. GONORRHOEAE RNA, TMA, UROGENITAL Routine 01/09/2025 10:14 AM EST Screening examination for STI HEPATITIS C AB W/REFL TO HCV RNA, QN, PCR Routine 01/09/2025 10:09 AM EST Encounter for hepatitis C screening test for low risk patient HIV 1/2 ANTIGEN/ANTIBODY, FOURTH GENERATION W/RFL Routine 01/09/2025 10:09 AM EST Screening examination for STI SYPHILIS SCREEN Routine 01/09/2025 10:09 AM EST Screening examination for STI IRON AND TOTAL IRON BINDING CAPACITY Routine 01/09/2025 10:09 AM EST Iron deficiency anemia, unspecified iron deficiency anemia type TSH W/REFLEX TO FT4 Routine 01/09/2025 1 0:09 AM EST Iron deficiency anemia, unspecified iron deficiency anemia type VITAMIN B12 Routine 01/09/2025 10:09 AM EST Iron deficiency anemia, unspecified iron deficiency anemia type FERRITIN Routine 01/09/2025 10:09 AM EST Iron deficiency anemia, unspecified iron deficiency anemia type CBC WITH AUTO DIFFERENTIAL Routine 01/09/2025 10:09 AM EST Iron deficiency anemia, unspecified iron deficiency anemia type BASIC METABOLIC PANEL Routine 01/09/2025 10:09 AM EST Major depressive disorder, recurrent episode, moderate (CMS/HCC) LIPID PANEL, STANDARD Routine 01/09/2025 10:09 AM EST Major depressive disorder, recurrent episode, moderate (CMS/HCC) HEPATIC FUNCTION PANEL Routine 01/09/2025 10:09 AM EST Major depressive disorder, recurrent episode, moderate (CMS/HCC) ZZZ HISTORICAL LIBERTAD LAB RESULT Routine 10/04/2021 12:00 AM EST from Last 3 Months or Most Recently Relevant to Health Maintenance Results * POCT , urine manually resulted (01/15/2025 9:13 AM EST) Only the most recent of2 resultswithin the time period is included. Preg Test, Ur Negative Negative, Indeterminate, None Detected, Invalid, Specimen unsatisfactory for evaluation, Weakly Positive QC Media Lot # [id number] Lot# Expiration Date [id number] Urine 01/15/2025 9:13 AM EST Erni Abdalla [facility] POINT OF CARE TEST ENTER/ EDIT ORDERABLES Final Result * Chlamydia/N. Gonorrhoeae RNA, TMA, Urine (01/09/2025 10:14 AM EST) Pathologist [facility] CT PCR NOT DETECTED Not Detect. [facility] Comment:A not detected test result does not exclude the possibilityof infection because test results can be affected byimproper specimen collection, concurrent antibiotic therapy,or the number of organisms in the specimen which may bebelow the sensitivity of the test. As with many diagnostictests, results from the Xpert CT/NG assay should beinterpreted in conjunction with other laboratory andclinical data available to the clinician.Xpert CT/NG performance has not been evaluated in patientsless than 14 years of age. The assay should not be used forthe evaluationof suspected sexual abuse or for other medico-legalindications. Additional testing is recommended in anycircumstance when false positive or false negative resultscould lead to adverse medical, social or psychologicalconsequences. NG PCR NOT DETECTED Not Detect. [facility] Comment:A not detected test result does not exclude the possibilityof infection because test results can be affected byimproper specimen collection, concurrent antibiotic therapy,or the number of organisms in the specimen which may bebelow the sensitivity of the test. As with many diagnostictests, results from the Xpert CT/NG assay should beinterpreted in conjunction with other laboratory andclinical data available to the clinician.Xpert CT/NG performance has not been evaluated in patientsless than 14 years of age. The assay should not be used forthe evaluationof suspected sexual abuse or for other medico-legalindications. Additional testing is recommended in anycircumstance when false positive or false negative resultscould lead to adverse medical, social or psychologicalconsequences. Urine (Urine, Random) 01/09/2025 10:14 AM EST 01/09/2025 4:22 PM EST Narrative [facility] - 01/10/2025 4:43 PM EST Urine Merly Lu MD LAB MICROBIOLOGY - GENERAL ORDERABLES Final Result Performing Organization Address City/[facility]/ZIP Co de Phone Number [facility] [address] [place] [phone] * Syphilis Screen (01/09/2025 10:09 AM EST) Pathologist [facility] Syphilis Screen Nonreactive Nonreactive [facility] Blood Venous blood specimen / Unknown 01/09/2025 10:09 AM EST 01/09/2025 11:04 AM EST Merly Lu MD LAB BLOOD ORDERABLES Final Result Performing Organization Address [facility] Co de Phone Number [facility] [address] [place] [phone] * TSH with Reflex to Free T4 (01/09/2025 10:09 AM EST) TSH reflex Free T4 0.43 0.32 - 4.0 uIU/mL [facility] Blood 01/09/2025 10:0 9 AM EST 01/09/2025 11:04 AM EST us Merly Lu MD LAB BLOOD ORDERABLES Final Result [facility] [address] [place], [place] [phone] * (ABNORMAL) CBC auto differential (01/09/2025 10:09 AM EST) White Blood Count 4.7(L) 4.8 - 10.8 X10*3/uL [facility] Red Blood Count 4.86 4.20 - 5.50 X10*6/uL [facility] Hemoglobin 13.4 12.0 - 16.0 g/dl [facility] Hematocrit 40.9 37.0 - 47.0 % [facility] Mean Corpuscular Volume 84.2 80.0 - 98.0 fL [facility] Mean Corpuscular Hemoglobin 27.6 27.0 - 33.0 pg [facility] Mean Corpuscular HGB Conc 32.8 31.0 - 35.0 g/dl [facility] Red Cell Distribution Width 13.2 11.0 - 16.0 % [facility] Platelet Count 255 160 - 400 X10*3/uL [facility] Mean Platelet Volume 11.0 9.4 - 12.3 fL [facility] Neutrophils Percent Auto 51.5 45 - 73 % [facility] Imm Gran Pct Auto 0.4 0.0 - 0.4 % [facility] Lymphocytes Percent Auto 37.3 20 - 40 % [facility] Monocytes Percent Auto 8.9 2 - 11 % [facility] Eosinophils Percent Auto 1.3 0 - 4 % [facility] Basophils Percent Auto 0.6 0 - 2 % [facility] NRBC Pct Auto 0.0 0.0 - 0.2 /100WBC [facility] Neutrophils Absolute Auto 2.4 2.0 - 8.3 x10*3/uL [facility] Imm Gran Abs Auto 0.02 0.00 - 0.03 X10*3/uL [facility] Lymphocytes Absolute Auto 1.8 1.2 - 4.9 X10*3/uL [facility] Monocytes Absolute Auto 0.4 0.1 - 1.2 X10*3/uL [facility] Eosinophils Absolute Auto 0.1 0.0 - 0.4 X10*3/uL [facility] Basophils Absolute Auto 0.0 0.0 - 0.2 X10*3/uL [facility] NRBC Abs Auto 0.000 0.0 - 0.012 X10*3/uL [facility] Blood Venous blood specimen / Unknown 01/09/2025 10:09 AM EST 01/09/2025 11:04 AM EST Merly Lu MD LAB BLOOD ORDERABLES Final Result Performing Organization Address City/[facility]/ZIP Co de Phone Number [facility] [address] [place] [phone] * Hepatitis C Antibody with Reflex to HCV, RNA, Quantitative, Real-Time PCR (01/09/2025 10:09 AM EST) [facility] Hepatitis C Antibody Nonreactive Nonreactive [facility] Comment:Antibodies to HCV no t detected; does not exclude early acuteHCV infection. Blood Venous blood specimen / Unknown 01/09/2025 10:09 AM EST 01/09/2025 11:04 AM EST Merly Lu MD LAB BLOOD ORDERABLES Final Result Performing Organization Address [facility]/ZIP Co de Phone Number [facility] [address] [place] [phone] * Iron And Total Iron Binding Capacity (01/09/2025 10:09 AM EST) [facility] Iron 55 30 - 160 mcg/dL [facility] Total Iron Binding Capacity 329 228 - 428 mcg/dL [facility] Percent Iron Saturation 17 15 - 50 % [facility] Unsaturated Iron Binding 274 ug/dL [facility] Blood Venous blood specimen / Unknown 01/09/2025 10:09 AM EST 01/09/2025 11:04 AM EST Merly Lu MD LAB BLOOD ORDERABLES Final Result Performing Organization Address City/[facility]/ZIP Co de Phone Number [facility] [address] [place] [address] [phone] * HIV-1/2 Antigen and Antibodies, Fourth Generation, with Reflexes (01/09/2025 10:09 AM EST) Pathologist [facility] HIV AB/AG Nonreactive Nonreactive [facility] Comment:HIV-1 p24 Ag and/or HIV-1/HIV-2 Ab not detected.A test result that is nonreactive does not exclude thepossibility of exposure to or infection with HIV-1 and/orHIV-2. Nonreactive results in this assay for individualswith prior exposure to HIV-1 and/or HIV-2 may be due toantigen and antibody levels that are below the limit ofdetection of this assay.The [employer] HIV Ag/Ab Combo assay result andsupplemental assay results should be interpreted inconjunction with the patient's clinical presentation,history and other laboratory results. If the results areinconsistent with clinical evidence, additional testing issuggested to confirm the result. Blood Venous blood specimen / Unknown 01/09/2025 10:09 AM EST 01/09/2025 11:04 AM EST Merly Lu MD LAB BLOOD ORDERABLES Final Result Performing Organization Address City/[facility]/ZIP Co de Phone Number [facility] [address] [place] [address] [phone] * Ferritin (01/09/2025 10:09 AM EST) Pathologist [facility] Ferritin 10 10 - 122 ng/mL [facility] Blood Venous blood specimen / Unknown 01/09/2025 10:09 AM EST 01/09/2025 11:04 AM EST Merly Lu MD LAB BLOOD ORDERABLES Final Result Performing Organization Address [facility]/ZIP Co de Phone Number [facility] [address] [place] [phone] * Vitamin B12 (01/09/2025 10:09 AM EST) Pathologist [facility] Vitamin B12 418 200 - 900 pg/mL [facility] Comment:NORMAL 200-900 PG/ML INDETERMINATE 160-199 PG/ML DEFICIENT < 160 PG/ML Blood Venous blood specimen / Unknown 01/09/2025 10:09 AM EST 01/09/2025 11:04 AM EST Merly Lu MD LAB BLOOD ORDERABLES Final Result Performing Organization Address [facility] Co de Phone Number [facility] [address] [place] [phone] * Hepatic Function Panel (01/09/2025 10:09 AM EST) Pathologist [facility] Bilirubin, Total 0.3 0.0 - 1.0 mg/dL [facility] Bilirubin, Direct 0.1 0.0 - 0.5 mg/dL [facility] Aspartate Amino Transferase 18 5 - 31 U/L [facility] Alanine Aminotransferase 12 0 - 31 U/L [facility] Total Protein 7.4 6.5 - 8.0 g/dL [facility] Albumin Level 4.0 3.5 - 5.0 g/dL [facility] Alkaline Phosphatase 70 39 - 117 U/L [facility] Blood Venous blood specimen / Unknown 01/09/2025 10:09 AM EST 01/09/2025 11:04 AM EST Merly Lu MD LAB BLOOD ORDERABLES Final Result Performing Organization Address [facility] Co de Phone Number [facility] [address] [place] [address] [phone] * Lipid Panel, Standard (01/09/2025 10:09 AM EST) Triglycerides 52 <150 mg/dL [facility] Comment:Desirable Triglyceri de: less than 150 mg/dLBorderline High Triglyceride 150-199 mg/dLHigh Triglyceride: 200-499 mg/dLVery High Triglyceride: greater than or equal to 5OO mg/dL Cholesterol 151 <200 mg/dL [facility] Comment:Desirable Cholestero l: less than 200 mg/dLBorderline High Cholesterol: 200-239 mg/dLHigh Cholesterol: greater than 239 mg/dL LDL Cholesterol Calculated 74 <100 mg/dL [facility] Comment:Desirable LDL: less than 100 mg/dLNear Optimal/Above Optimal LDL: 110- 129 mg/dLBorderline High LDL: 130-159 mg/dLHigh LDL: 160-189 mg/dLVery High LDL: greater than or equal to 190 mg/dL HDL Cholesterol 67 >40 mg/dL [facility] Comment:Desirable HDL: great er than 40 mg/dL Note: This HDL assay may give artificially low results in patients with liver disease. Blood Venous blood specimen / Unknown 01/09/2025 10:09 AM EST 01/09/2025 11:04 AM EST Merly Lu MD LAB BLOOD ORDERABLES Final Result Performing Organization Address [facility]/ZIP Co de Phone Number [facility] [address] [place] [phone] * (ABNORMAL) Basic Metabolic Panel (01/09/2025 10:09 AM EST) Sodium 138 135 - 145 mmol/L [facility] Potassium 3.9 3.3 - 5.1 mmol/L [facility] Chloride 107 96 - 108 mmol/L [facility] Carbon Dioxide 25 22 - 29 mmol/L [facility] Anion Gap 10(L) 12 - 20 [facility] Urea Nitrogen (BUN) 8(L) 9 - 16 mg/dL [facility] Creatinine, Serum 0.73 0.5 - 1.4 mg/dL [facility] Estimated Glomerular Filt Rate >60 [facility] Comment:Chronic Kidney Disea se: Estimated GFR < 60 mL/min/[id number] Kidney Disease: Estimated GFR < 15 mL/min/1.73m2 Glucose 80 60 - 115 mg/dL [facility] Calcium 9.4 8.4 - 10.2 mg/dL [facility] Blood Venous blood specimen / Unknown 01/09/2025 10:09 AM EST 01/09/2025 11:04 AM EST Merly Lu MD LAB BLOOD ORDERABLES Final Result Performing Organization Address City/[facility]/ZIP Co de Phone Number [facility] [address] [place] [address] [phone] * HISTORICAL LIBERTAD LAB RESULT (10/04/2021 12:00 AM EST) Pap smear, previous NONE GIVEN [facility] Pap smear, previous biopsy NONE GIVEN [facility] vaginal Pap smear results Negative for intraepithelial lesion or malignancy. [facility] pap smear, clinical information This Pap test has been evaluated with computer assisted technology. [facility] 10/04/2021 us Daniela Maki NP HISTORICAL/NON ORDERABLE LA BS Final Result [facility] [address] from Last 3 Months or Most Recently Relevant to Health Maintenance [facility] [address] [place] [address] C3 Advance Directives Documents on File Type Date Recorded Patient Electronic Imager Expl anation Advance Directives and Living Will 01/13/2025 Health Care Proxy 01/09/25 Care Teams Waxing Machine Operator Helper Relationship Specialty Start Date End Date [place], MD Merly [address] [place] [phone] PCP - General Family Medicine 12/02/24
--- OUTSIDE RECORDS SUMMARY | 2025-01-15 19:42 | XMS_ITS | Clinical Summary ---
Author Organization [facility] Address [address] [place] [address] Care Team Providers Care Assistant Refinery Operator Name Role Phone Unavailable Primary Care Provider [...] Cervical Cancer Screening 2021 Pap Smear 2021 [id number] (3 - 2023- season) 07/13/2024/05/2 021, 03/24/2021 Imm-Influenza (#1) 2024 Alcohol and Drug Screen 11/12/2024 Depression Annual Screen 11/12/2024 Cervical Ablation/Cold-Knife Conization Discontinued Cervical Cryotherapy Discontinued Colposcopy Discontinued Endometrial Biopsy Discontinued Excision/Leep Discontinued HPV Genotyping Discontinued Vaginal Pap Discontinued Vulvoscopy Discontinued
--- OUTSIDE RECORDS SUMMARY | 2025-01-15 19:42 | XMS_ITS | Encounter Summary ---
Author Organization [employer] Address [address] [place] [address] Care Team Providers Care Dam Tender Name Role Phone Merly Lu MD Primary Care Provider [phone] Encounter Details Date Type Department Care Team (Latest Contact Info) Description 01/15/2025 9:00 AM EST Procedure Visit [facility] [address] [place] [address] Erin Abdalla CN [address] [place] [address] Cervical cancer screening (Primary Dx); Encounter for initial insertion of intrauterine contraceptive device Social History Tobacco Use Types Packs/Day Years [...] Mass Index 24.4 01/15/2025 9:04 AM EST documented in this encounter Progress Notes * Erin Abdalla CNM - 01/15/2025 9:00 AM EST Subjective Patient ID: rCistina Frey is a 24 y.o. female who presents for IUD Pap NIL 09/2021. Agrees to pap today. Would like Liletta IUD today. Gonorrhea/Chlamydia, HIV, syphilis, Hep C neg 12/2024. Previously on Depo, last given 03/2024. Monthly menses x 5d. LMP 12/16. test negative today. No contraindications to IUD. No current sexual partner. Review of Systems Genitourinary: Negative for menstrual problem, pelvic pain, vaginal bleeding, vaginal discharge andvaginal pain. Objective BP 108/70 (BP Location: Left arm, Patient Position: Sitting, BP Cuff Size: Adult) Pulse 88 Temp96.9 ??F (36.1 ??C) (Temporal) Resp 20 Ht 5' 7 (1.702 m) Wt 155 lb 12.8 oz (70.7 kg) LMP 12/16/2024 (Approximate) SpO2 96% BMI 24.40 kg/m?? Physical Exam Constitutional: Appearance: Normal appearance. Genitourinary: General: Normal vulva. Labia: Right: No rash, tenderness, lesion or injury. Left: No rash, tenderness, lesion or injury. Vagina: Normal. No signs of injury and foreign body. No vaginal discharge, erythema, tenderness, bleeding, lesions or prolapsed vaginal sheldon. Cervix: Normal. No cervical motion tenderness, discharge, friability, lesion, erythema, cervical bleeding or eversion. Uterus: Normal. Not enlarged and not tender. Adnexa: Right adnexa normal and left adnexa normal. Right: No mass, tenderness or fullness. Left: No mass, tenderness or fullness. Neurological: Mental Status: She is alert. Psychiatric: Mood and Affect: Mood normal. Behavior: Behavior normal. Assessment/Plan Diagnoses and all orders for this visit: Cervical cancer screening - Pap Smear Pap today. Repeat 3 years if normal. Encounter for initial insertion of intrauterine contraceptive device - POCT , urine manually resulted - Levonorgestrel intrauterine device 20.1 mcg/day - lidocaine 2 % gel - ibuprofen tablet 400 mg Reviewed normal side effects and danger signs. Report heavy bleeding, fever, chills or abdominal pain. Reviewed how to check IUD strings. Report if change in string length, strings not palpable or ifplastic is felt. Do not pull on strings. Remove/replace IUD by 8 y from insertion. May remove any time before then if desired. Advised IUD not effective for 7 days, use backup method until then, and until followup visit as precaution. Indications: contraception Procedure Details Urine test was done and result was negative . The risks (including infection, bleeding, pain, and uterine perforation) and benefits of the procedure were explained to the patient and Written informed consent was obtained. Procedure Time Out Documentation Time out performed Bimanual performed, anteverted uterus noted. Speculum inserted. Cervix cleansed with Betadine. Sterile lidocaine applied to cervix with sterile scopette and to tips of all instruments. Tenaculum applied to anterior lip of the cervix. Uterus sounded to 8 cm. IUD inserted without difficulty. String visible and trimmed. Tenaculum removed. Bleeding controlled with scopette. Patient tolerated procedure well. IUD Information: Liletta lot [id number] exp 11/2028 . Condition: Stable Complications: None Plan: Use OTC analgesics as needed for mild to moderate pain. Report heavy bleeding, fever, chills or abdominal pain. Reviewed how to check IUD strings, but that she does not have to check them. Avoid pulling on strings. Advised back up method until followup visit as precaution. Return in 4-6 wks documented in this encounter Plan of Treatment Upcoming Encounters Date Type Department Care Team (Late st Contact Info) Description 02/16/2025 2:00 PM EDT Office Visit [facility] [address] [place] [address] Erin Abdalla CNM [address] [place] [address] Scheduled Orders Name Type Priority Associated Diagnoses Orde r Schedule Pap Smear Pathology and Cytology Routine Cervical cancer screening Ordered: 01/15/2025 documented as of this encounter Procedures Procedure Name Priority Date/Time Associated Diagnosis Comments POCT , URINE Routine 01/15/2025 9:13 AM EST Encounter for initial insertion of intrauterine contraceptive device documented in this encounter Results * POCT , urine manually resulted (01/15/2025 9:13 AM EST) Preg Test, Ur Negative Negative, Indeterminate, None Detected, Invalid, Specimen unsatisfactory for evaluation, Weakly Positive QC Media Lot # [id number] Lot# Expiration Date [id number] Urine 01/15/2025 9:13 AM EST Erin Abdalla CN POINT OF CARE TEST ENTER/ EDIT ORDERABLES Final Result documented in this encounter Visit Diagnoses Diagnosis Cervical cancer screening- Primary Screening for malignant neoplasm of the cervix Encounter for initial insertion of intrauterine contraceptive device documented in this encounter Administered Medications Active Administered Medications - up to 3 most recent administrations Medication Order MAR Action Action Date Dose Rate Site lidocaine 2 % gel Urethral, As needed, mild pain, Starting on Delmi 01/15/25 at 0945Indications:Encounter for initial insertion of intrauterine contraceptive device Given 01/15/2025 9:00 AM EST Inactive Administered Medications - up to 3 most recent administrations Medication Order MAR Action Action Date Dose Rate Site ibuprofen tablet 400 mg 400 mg, Oral, Once, On Delmi 01/15/25 at 1000, For 1 doseIndications:Encounter for initial insertion of intrauterine contraceptive device Given 01/15/2025 10:00 AM EST 400 mg Levonorgestrel intrauterine device 20.1 mcg/day 20.1 mcg/day, Intrauterine, Once, On Delmi 01/15/25 at 1000, For 1 doseIndications:Encounter for initial insertion of intrauterine contraceptive device Given 01/15/2025 9:15 AM EST 20.1 mcg/day documented in this encounter Additional Health Concerns Assessment Noted Time PHQ-9 Depression Total Score: 8 01/09/20 10:09 AM EST documented as of this encounter Care Teams Dam Tender Relationship Specialty Start Date End Date Merly Lu MD [address] [place] [id number] PCP - General Family Medicine 12/02/24 documented as of this encounter
--- OUTSIDE RECORDS SUMMARY | 2025-01-15 19:42 | XMS_ITS | Encounter Summary ---
Author Organization [employer] Address [address] [place] [address] Care Team Providers Care Career Professional Name Role Phone Merly Lu MD Primary Care Provider [phone]- [phone] Reason for Referral * Consultation (Routine) - Authorized Specialty Diagnoses / Procedures Referred By Candy dyson Referred To Contact Midwifery Diagnoses Family planning Merly Lu MD [address] [place] [phone] Phone: tel: fax: Erin Abdalla, ABRAHAM [address] [place] [address] Phone: tel: fax: Referral ID Status Reason Start Date Expiration Date Visits Requested Visits Authorized [id number] Authorized Consult and Treat 01/09/2025 01/09/2026 1 1 * Consultation (Routine) - Closed Specialty Diagnoses / Procedures Referred By Candy dyson Referred To Contact Physical Therapy Diagnoses Ankle stiffness, right Merly Lu MD [address] [place] [address] Phone: tel: fax: [facility] [place] [address] [place] [address] Phone: tel: fax: Referral ID Status Reason Start Date Expiration Date V isits Requested Visits Authorized [id number] Closed Specialty Services Required 01/09/2025 01/09/2026 1 1 * Consultation (Routine) - Authorized Specialty Diagnoses / Procedures Referred By Contstalin dyson Referred To Contact Behavioral Health Diagnoses Adjustment disorder with mixed anxiety and depressed mood Merly Lu MD [address] [place] [address] Phone: tel: fax: Referral ID Status Reason Start Date Expiration Date Visits Requested Visits Authorized [id number] Authorized Specialty Services Required 01/09/2025 01/09/2026 1 1 Encounter Details Date Type Department Care Team (Late st Contact Info) Description 01/09/2025 9:00 AM EST Office Visit [facility] [address] [place] [phone] Merly Lu MD [address] [place] [address] Ankle stiffness, right (Primary Dx); Mild intermittent [...] 8:59 AM EST documented in this encounter Progress Notes * Merly Lu MD - 01/09/2025 9:00 AM EST Subjective Jenylies is a 24 y.o. patient who presents to the office today for new patient intake and comprehensive annual evaluation. Pt reports their stty has all healed up. Asthma has been mostly controlled, seemingly worsens when they walks excessively. Reports they have been dealing with family loss and their depression has worsened, but not nearly as much when it was at its worst during her younger years. Pt notes do not currently have a therapistbut they are interested. Pt reports when they were younger they had a right ankle injury and has followed with a specialist,but is still having stiffness in the right ankle. Agrees to COVID, Pneumonia, tetanus and Flu vaccines today. Social History Tobacco: denied Drugs: marijuana Alcohol: occasionally, once a week or once every two weeks. Reports being safe. Sexuality: Currently sexually active. Last intercourse about 3 weeks ago. Had menstrual period after intercourse. Discussed contraception and birthcontrol options. Suicide/Depression: Current depressive symptoms include: Mood disturbance, characterized by sadness. Review of Systems Constitutional: Negative for fatigue, fever and unexpected weight change. Respiratory: Negative for cough. Cardiovascular: Negative for chest pain. Gastrointestinal: Negative for abdominal pain. Genitourinary: Negative for difficulty urinating. Current Outpatient Medications: albuterol 108 (90 Base) MCG/ACT inhaler, Inhale 2 puffs every 4 (four) hours if needed for wheezing., Disp: 18 g, Rfl: 0 loratadine (Claritin) 10 MG tablet, Take 1 tablet (10 mg) by mouth Once per day., Disp: 30 tablet, Rfl: 11 Current Facility-Administered Medications: medroxyPROGESTERone (Depo-Provera) injection 150 mg, 150 mg, Intramuscular, q3 months, Luis Alexandra NP, 150 mg at 04/02/24 0900 No Known Allergies Past Medical History: Diagnosis Date Adjustment disorder with mixed anxiety and depressed mood 03/15/2023 Asthma, exercise induced 06/07/2021 Generalized anxiety disorder 07/13/2022 Iron deficiency anemia 06/07/2021 Major depressive disorder, recurrent episode, moderate (CMS/HCC) 07/13/2022 Migraine headache with aura 06/07/2021 Mild intermittent asthma Mild intermittent asthma without complication 12/02/2024 - continue albuterol 108 (90 Base) MCG/ACT inhaler 12/02/24 Seasonal allergies 12/02/2024 - continue loratadine (Claritin) 10 MG tablet Past Surgical History: Procedure Laterality Date EAR TUBE REMOVAL Family History Problem Relation Name Age of Onset Breast cancer Mother's Sister Diabetes Maternal Grandmother Diabetes Maternal Grandfather Hypertension Paternal Grandmother Objective Visit Vitals BP 109/67 (BP Location: Left arm, Patient Position: Sitting, BP Cuff Size: Adult) Pulse 89 Temp 97.1 ??F (36.2 ??C) (Temporal) Resp 19 Ht 5' 7 (1.702 m) Wt 151 lb (68.5 kg) SpO2 98% BMI 23.65 kg/m?? OB Status Having periods Smoking Status Never BSA 1.8 m?? Physical Exam Constitutional: Appearance: Normal appearance. HENT: Head: Normocephalic. Right Ear: Tympanic membrane normal. Left Ear: Tympanic membrane normal. Mouth/Throat: Pharynx: Oropharynx is clear. Eyes: Pupils: Pupils are equal, round, and reactive to light. Cardiovascular: Rate and Rhythm: Normal rate and regular rhythm. Heart sounds: Normal heart sounds. Pulmonary: Effort: Pulmonary effort is normal. Breath sounds: Normal breath sounds. Abdominal: General: Abdomen is flat. Palpations: There is no mass. Tenderness: There is no abdominal tenderness. Musculoskeletal: General: Normal range of motion. Cervical back: Normal range of motion and neck supple. Lymphadenopathy: Cervical: No cervical adenopathy. Skin: General: Skin is warm and dry. Neurological: General: No focal deficit present. Mental Status: She is alert. Psychiatric: Behavior: Behavior normal. 24 y.o. female annual evaluation. Problem List Items Addressed This Visit Ankle stiffness, right - Primary Injury as a child. Still having decreased ROM on exam. Discussed treatment options. Pt agrees to PT. -referred to PT 01/09/25 Relevant Orders Referral to Physical Therapy Mild intermittent asthma without complication - continue albuterol 108 (90 Base) MCG/ACT inhaler Seasonal allergies - continue loratadine (Claritin) 10 MG tablet Adjustment disorder with mixed anxiety and depressed mood Hx of severe depression in childhood. Not currently established with therapist. -referred to [facility] 01/09/25 Relevant Orders Referral to Behavioral Health Major depressive disorder, recurrent episode, moderate (CMS/HCC) Hx of severe depression in childhood. Not currently established with therapist. -referred to [facility] 01/09/25 Relevant Orders Hepatic Function Panel (Completed) Lipid Panel, Standard (Completed) Basic Metabolic Panel (Completed) Iron deficiency anemia -ordered iron labs 01/09/25 Relevant Orders CBC auto differential (Completed) Ferritin (Completed) Vitamin B12 (Completed) TSH with Reflex to Free T4 (Completed) Iron And Total Iron Binding Capacity (Completed) Family planning Family planning options discussed. Pt desires IUD. -Discussed getting appt set up with Erin(licensed midwife) -Side effects and danger signs reviewed -May have some breast tenderness or irregular bleeding for first few months. This is not worrisome. -Report headache, shortness of breath, chest pain, visual changes, abdominal pain, calf pain or jaundice. -Condoms offered Relevant Orders Referral to Gynecology (Erin) POCT Urine (Completed) Other specified health status -next comprehensive annual evaluation due after 01/09/26 -eye care facilitated by [facility] -dental home is encouraged -damian care proxy 01/09/25 Other Visit Diagnoses Screening examination for STI Relevant Orders Chlamydia/N. Gonorrhoeae RNA, TMA, Urine Syphilis Screen (Completed) HIV-1/2 Antigen and Antibodies, Fourth Generation, with Reflexes (Completed) Encounter for hepatitis C screening test for low risk patient Relevant Orders Hepatitis C Antibody with Reflex to HCV, RNA, Quantitative, Real-Time PCR (Completed) Encounter for immunization Relevant Orders COVID-19 VACCINE (Pfizer) [id number] 12 yrs + (Completed) FLU VACCINE TRIVALENT (Fluarix) 6 mo + (Completed) PCV-20 VACCINE 6 wks + (Completed) TDAP VACCINE 7 yrs + (Completed) Annual Evaluation -Normal growth and development. -Anticipatory guidance discussed. -Preventative care / harm reduction discussed. Follow up next available, for PAP. I, Graciela Riggs, am serving as a scribe to document services personally performed by Dr. Parr, based on the patient's response to questions by provider and providers statements to me. documented in this encounter Miscellaneous Notes * [...] IUD. -Discussed getting appt set up with Erin(licensed midwife) -Side effects and danger signs reviewed -May [...] due after 01/09/26 -eye care facilitated by [facility] -dental home is encouraged -damian care [...] Description 02/16/2025 2:00 PM EDT Office Visit [facility] [address] [place] [address] Erin Abdalla CNM [address] [place] [address] Scheduled Referrals Name Type Priority Associated Diagnoses [...] Associated Diagnosis Comments POCT , URINE Routine 01/09/2025 11:41 AM EST Family planning CHLAMYDIA/N. GONORRHOEAE RNA, TMA, UROGENITAL Routine 01/09/2025 10:14 AM EST Screening examination for STI SYPHILIS SCREEN Routine 01/09/2025 10:09 AM EST Screening examination for STI TSH W/REFLEX TO FT4 Routine 01/09/2025 1 0:09 AM EST Iron deficiency anemia, unspecified iron deficiency anemia type CBC WITH AUTO DIFFERENTIAL Routine 01/09/2025 10:09 AM EST Iron deficiency anemia, unspecified iron deficiency anemia type HEPATITIS C AB W/REFL TO HCV RNA, QN, PCR Routine 01/09/2025 10:09 AM EST Encounter for hepatitis C screening test for low risk patient IRON AND TOTAL IRON BINDING CAPACITY Routine 01/09/2025 10:09 AM EST Iron deficiency anemia, unspecified iron deficiency anemia type HIV 1/2 ANTIGEN/ANTIBODY, FOURTH GENERATION W/RFL Routine 01/09/2025 10:09 AM EST Screening examination for STI FERRITIN Routine 01/09/2025 10:09 AM EST Iron deficiency anemia, unspecified iron deficiency anemia type VITAMIN B12 Routine 01/09/2025 10:09 AM EST Iron deficiency anemia, unspecified iron deficiency anemia type HEPATIC FUNCTION PANEL Routine 01/09/2025 10:09 AM EST Major depressive disorder, recurrent episode, moderate (CMS/HCC) LIPID PANEL, STANDARD Routine 01/09/2025 10:09 AM EST Major depressive disorder, recurrent episode, moderate (CMS/HCC) BASIC METABOLIC PANEL Routine 01/09/2025 10:09 AM EST Major depressive disorder, recurrent episode, moderate (CMS/HCC) documented in this encounter Results * POCT Urine (01/09/2025 11:41 AM EST) Preg Test, Ur Negative Negative, Indeterminate, None Detected, Invalid, Specimen unsatisfactory for evaluation, Weakly Positive QC Media Lot # [id number] Lot# Expiration Date [id number] Urine 01/09/2025 11:4 1 AM EST Merly Lu MD POINT OF CARE TEST ENTER/E DIT ORDERABLES Final Result * Chlamydia/N. Gonorrhoeae RNA, TMA, Urine (01/09/2025 10:14 AM EST) CT PCR NOT DETECTED Not Detect. [facility] Comment:A not detected test result does [...] psychologicalconsequences. NG PCR NOT DETECTED Not Detect. [facility] Comment:A not detected test result does [...] AM EST 01/09/2025 4:22 PM EST Narrative [facility] - 01/10/2025 4:43 PM EST Urine Merly Lu MD LAB MICROBIOLOGY - GENERAL ORDERABLES Final Result Performing Organization Address [facility] de Phone Number [facility] [address] [place] [phone] * Hepatitis C Antibody with Reflex to HCV, RNA, Quantitative, Real-Time PCR (01/09/2025 10:09 AM EST) Hepatitis C Antibody Nonreactive Nonreactive [facility] Comment:Antibodies to HCV no t detected; does not exclude early acuteHCV infection. Blood Venous blood specimen / Unknown 01/09/2025 10:09 AM EST 01/09/2025 11:04 AM EST Merly Lu MD LAB BLOOD ORDERABLES Final Result Performing Organization Address [facility] de Phone Number [facility] [address] [place] [phone] * HIV-1/2 Antigen and Antibodies, Fourth Generation, with Reflexes (01/09/2025 10:09 AM EST) HIV AB/AG Nonreactive Nonreactive [facility] Comment:HIV-1 p24 Ag and/or HIV-1/HIV-2 Ab not detected.A test result that is nonreactive does not exclude thepossibility of exposure to or infection with HIV-1 and/orHIV-2. Nonreactive results in this assay for individualswith prior exposure to HIV-1 and/or HIV-2 may be due toantigen and antibody levels that are below the limit ofdetection of this assay.The [employer] HIV Ag/Ab Combo assay result andsupplemental assay results should be interpreted inconjunction with the patient's clinical presentation,history and other laboratory results. If the results areinconsistent with clinical evidence, additional testing issuggested to confirm the result. Blood Venous blood specimen / Unknown 01/09/2025 10:09 AM EST 01/09/2025 11:04 AM EST Merly Lu MD LAB BLOOD ORDERABLES Final Result Performing Organization Address [facility]/ZIP Co de Phone Number [facility] [address] [place] [phone] * Syphilis Screen (01/09/2025 10:09 AM EST) Syphilis Screen Nonreactive Nonreactive [facility] Blood Venous blood specimen / Unknown 01/09/2025 10:09 AM EST 01/09/2025 11:04 AM EST Merly Lu MD LAB BLOOD ORDERABLES Final Result Performing Organization Address [facility] Co de Phone Number [facility] [address] [place] [phone] * Iron And Total Iron Binding Capacity (01/09/2025 10:09 AM EST) Pathologist [facility] Iron 55 30 - 160 mcg/dL [facility] Total Iron Binding Capacity 329 228 - 428 mcg/dL [facility] Percent Iron Saturation 17 15 - 50 % [facility] Unsaturated Iron Binding 274 ug/dL [facility] Blood Venous blood specimen / Unknown 01/09/2025 10:09 AM EST 01/09/2025 11:04 AM EST Merly Lu MD LAB BLOOD ORDERABLES Final Result Performing Organization Address [facility] Co de Phone Number [facility] [address] [place] [phone] * TSH with Reflex to Free T4 (01/09/2025 10:09 AM EST) TSH reflex Free T4 0.43 0.32 - 4.0 uIU/mL [facility] Blood 01/09/2025 10:0 9 AM EST 01/09/2025 11:04 AM EST Merly Lu MD LAB BLOOD ORDERABLES Final Result Performing Organization Address [facility] Co de Phone Number [facility] [address] [place] [phone] * Vitamin B12 (01/09/2025 10:09 AM EST) Pathologist [facility] Vitamin B12 418 200 - 900 pg/mL [facility] Comment:NORMAL 200-900 PG/ML INDETERMINATE 160-199 PG/ML DEFICIENT < 160 PG/ML Blood Venous blood specimen / Unknown 01/09/2025 10:09 AM EST 01/09/2025 11:04 AM EST Merly Lu MD LAB BLOOD ORDERABLES Final Result Performing Organization Address [facility] Co ak Phone Number [facility] [address] [place] [phone] * Ferritin (01/09/2025 10:09 AM EST) Pathologist [facility] Ferritin 10 10 - 122 ng/mL [facility] Blood Venous blood specimen / Unknown 01/09/2025 10:09 AM EST 01/09/2025 11:04 AM EST Merly Lu MD LAB BLOOD ORDERABLES Final Result Performing Organization Address [facility] de Phone Number [facility] [address] [place] [phone] * (ABNORMAL) CBC auto differential (01/09/2025 10:09 AM EST) [facility] White Blood Count 4.7(L) 4.8 - 10.8 X10*3/uL [facility] Red Blood Count 4.86 4.20 - 5.50 X10*6/uL [facility] Hemoglobin 13.4 12.0 - 16.0 g/dl [facility] Hematocrit 40.9 37.0 - 47.0 % [facility] Mean Corpuscular Volume 84.2 80.0 - 98.0 fL [facility] Mean Corpuscular Hemoglobin 27.6 27.0 - 33.0 pg [facility] Mean Corpuscular HGB Conc 32.8 31.0 - 35.0 g/dl [facility] Red Cell Distribution Width 13.2 11.0 - 16.0 % [facility] Platelet Count 255 160 - 400 X10*3/uL [facility] Mean Platelet Volume 11.0 9.4 - 12.3 fL [facility] Neutrophils Percent Auto 51.5 45 - 73 % [facility] Imm Gran Pct Auto 0.4 0.0 - 0.4 % [facility] Lymphocytes Percent Auto 37.3 20 - 40 % [facility] Monocytes Percent Auto 8.9 2 - 11 % [facility] Eosinophils Percent Auto 1.3 0 - 4 % [facility] Basophils Percent Auto 0.6 0 - 2 % [facility] NRBC Pct Auto 0.0 0.0 - 0.2 /100WBC [facility] Neutrophils Absolute Auto 2.4 2.0 - 8.3 x10*3/uL [facility] Imm Gran Abs Auto 0.02 0.00 - 0.03 X10*3/uL [facility] Lymphocytes Absolute Auto 1.8 1.2 - 4.9 X10*3/uL [facility] Monocytes Absolute Auto 0.4 0.1 - 1.2 X10*3/uL [facility] Eosinophils Absolute Auto 0.1 0.0 - 0.4 X10*3/uL [facility] Basophils Absolute Auto 0.0 0.0 - 0.2 X10*3/uL [facility] NRBC Abs Auto 0.000 0.0 - 0.012 X10*3/uL [facility] Blood Venous blood specimen / Unknown 01/09/2025 10:09 AM EST 01/09/2025 11:04 AM EST us Merly Lu MD LAB BLOOD ORDERABLES Final Result Performing Organization Address [facility]/ZIP Co de Phone Number [facility] [address] [place] [phone] * (ABNORMAL) Basic Metabolic Panel (01/09/2025 10:09 AM EST) Sodium 138 135 - 145 mmol/L [facility] Potassium 3.9 3.3 - 5.1 mmol/L [facility] Chloride 107 96 - 108 mmol/L [facility] Carbon Dioxide 25 22 - 29 mmol/L [facility] Anion Gap 10(L) 12 - 20 [facility] Urea Nitrogen (BUN) 8(L) 9 - 16 mg/dL [facility] Creatinine, Serum 0.73 0.5 - 1.4 mg/dL [facility] Estimated Glomerular Filt Rate >60 [facility] Comment:Chronic Kidney Disea se: Estimated GFR < 60 mL/min/1.69u7Hmynaf Kidney Disease: Estimated GFR < 15 mL/min/1.73m2 Glucose 80 60 - 115 mg/dL [facility] Calcium 9.4 8.4 - 10.2 mg/dL [facility] Blood Venous blood specimen / Unknown 01/09/2025 10:09 AM EST 01/09/2025 11:04 AM EST Merly Lu MD LAB BLOOD ORDERABLES Final Result Performing Organization Address City/[facility]/ZIP Co de Phone Number [facility] [address] [place] [phone] * Lipid Panel, Standard (01/09/2025 10:09 AM EST) Triglycerides 52 <150 mg/dL [facility] Comment:Desirable Triglyceri de: less than 150 mg/dLBorderline High Triglyceride 150-199 mg/dLHigh Triglyceride: 200-499 mg/dLVery High Triglyceride: greater than or equal to 5OO mg/dL Cholesterol 151 <200 mg/dL [facility] Comment:Desirable Cholestero l: less than 200 mg/dLBorderline High Cholesterol: 200-239 mg/dLHigh Cholesterol: greater than 239 mg/dL LDL Cholesterol Calculated 74 <100 mg/dL [facility] Comment:Desirable LDL: less than 100 mg/dLNear Optimal/Above Optimal LDL: 110- 129 mg/dLBorderline High LDL: 130-159 mg/dLHigh LDL: 160-189 mg/dLVery High LDL: greater than or equal to 190 mg/dL HDL Cholesterol 67 >40 mg/dL [facility] Comment:Desirable HDL: great er than 40 mg/dL Note: This HDL assay may give artificially low results in patients with liver disease. Blood Venous blood specimen / Unknown 01/09/2025 10:09 AM EST 01/09/2025 11:04 AM EST Merly Lu MD LAB BLOOD ORDERABLES Final Result Performing Organization Address [facility] de Phone Number [facility] [address] [place] [phone] * Hepatic Function Panel (01/09/2025 10:09 AM EST) Bilirubin, Total 0.3 0.0 - 1.0 mg/dL [facility] Bilirubin, Direct 0.1 0.0 - 0.5 mg/dL [facility] Aspartate Amino Transferase 18 5 - 31 U/L [facility] Alanine Aminotransferase 12 0 - 31 U/L [facility] Total Protein 7.4 6.5 - 8.0 g/dL [facility] Albumin Level 4.0 3.5 - 5.0 g/dL [facility] Alkaline Phosphatase 70 39 - 117 U/L [facility] Blood Venous blood specimen / Unknown 01/09/2025 10:09 AM EST 01/09/2025 11:04 AM EST Merly Lu MD LAB BLOOD ORDERABLES Final Result Performing Organization Address [facility] Co de Phone Number [facility] [address] [place] [phone] documented in this encounter Visit Diagnoses [...] documented as of this encounter Care Teams Career Professional Relationship Specialty Start Date End Date Merly Lu MD [address] [place] [phone] PCP - General Family Medicine 12/02/24 documented as of this encounter
--- OUTSIDE RECORDS SUMMARY | 2025-01-15 19:42 | XMS_ITS | Encounter Summary ---
Author Organization [employer] Address [address] [facility] [address] [place] [address] Care Team Providers Care Biller Name Role Phone Merly Lu MD Primary Care Provider [phone] Encounter Details Date Type Department Care Team (Latest Contact Info) Description 01/15/2025 Travel Social History Tobacco Use Types Packs/Day [...] Description 02/16/2025 2:00 PM EDT Office Visit [facility] [address] [place] [address] Erin Abdalla CNM [address] [place] [address] documented as of this encounter Visit Diagnoses Not on filedocumented in this encounter Additional Health Concerns Assessment Noted Time PHQ-9 Depression Total Score: 8 01/09/20 25 10:09 AM EST documented as of this encounter Care Teams Biller Relationship Specialty Start Date End Date Merly Lu MD [address] [place] [address] PCP - General Family Medicine 12/02/24 documented as of this encounter
== END 2025-01-15 17:53 | disposition home or self-care (01) ==
LOC: HO.HHCLNP 17:52
PROVIDERS: Visit Provider Advanced Practice Midwife
DX: Z12.4 Encounter for screening for malignant neoplasm of cervix (principal)
CPT/HCPCS: 88175

== ENCOUNTER 2025-02-16 16:59 | Outpatient (REF) | payer MEDICAID, SELFPAY ==
--- OUTSIDE RECORDS SUMMARY | 2025-02-16 18:51 | XMS_ITS | Clinical Summary ---
Author Organization [facility] Address [address] [place] [address] Care Team Providers Care Smoke Jumper Supervisor Name Role Phone Unavailable Primary Care Provider [...] Health Maintenance Due Date Last Done Comments Anxiety Screening 2000 HPV Screening 2000 Hepatitis C Screening 2000 [...] Cervical Cancer Screening 2021 Pap Smear 2021 [id number] (3 - 2023- season) 2024 0605/2 021, 03/24/2021 Imm-Influenza (#1) 2024 Alcohol and Drug Screen 11/12/2024 Depression Annual Screen 11/12/2024 Cervical Ablation/Cold-Knife Conization Discontinued Cervical Cryotherapy Discontinued Colposcopy Discontinued Endometrial Biopsy Discontinued Excision/Leep Discontinued HPV Genotyping Discontinued Vaginal Pap Discontinued Vulvoscopy Discontinued
--- OUTSIDE RECORDS SUMMARY | 2025-02-16 18:51 | XMS_ITS | Encounter Summary ---
Author Organization [employer] Address [address] [facility] 7t [place] [address] Care Team Providers Care Ash Pit Worker Name Role Phone Merly Lu MD Primary Care Provider +1- [phone] Encounter Details Date Type Department Care Team (Late st Contact Info) Description 02/16/2025 Telephone [facility] [address] [place] [address] Erin Abdalla, [facility] [address] [place] [address] Social History Tobacco Use Types Packs/Day Years Used Date Smoking Tobacco: Never Passive Smoke Exposure: Never Smokeless Tobacco: Never Alcohol Use Standard [...] as of this encounter Plan of Treatment Not on file documented as of this encounter Visit Diagnoses Not on filedocumented in this encounter Additional Health Concerns Assessment Noted Time PHQ-9 Depression Total Score: 8 01/09/20 25 10:09 AM EST documented as of this encounter Care Teams Ash Pit Worker Relationship Specialty Start Date End Date Merly Lu MD [address] [place] [address] PCP - General Family Medicine 12/02/24 documented as of this encounter
--- OUTSIDE RECORDS SUMMARY | 2025-02-16 18:51 | XMS_ITS | Encounter Summary ---
Author Organization [employer] Address 75 [facility] 7t [place] [address] Care Team Providers Care Potato Chip Cooker Machine Name Role Phone Merly Lu MD Primary Care Provider +1- [phone] Encounter Details Date Type Department Care Team ([facility] st Contact Info) Description 02/11/2025 Population Health Risk Score [facility] (C3) Department [address] [phone] Provider, Population Health Generic Social History Tobacco Use Types Packs/Day Years [...] documented as of this encounter Care Teams Potato Chip Cooker Machine Relationship Specialty Start Date End Date Merly Lu MD [address] [place] [phone] PCP - General Family Medicine 12/02/24 documented as of this encounter
--- OUTSIDE RECORDS SUMMARY | 2025-02-16 18:51 | XMS_ITS | Clinical Summary ---
Author Organization [employer] Address [address] [facility] 7t [place] [address] Care Team Providers Care Professor Of Forest Planning Name Role Phone Merly Lu MD Primary Care Provider +1- [phone] Allergies No known active allergies Medications * This document contains information received from the source organization and may not represent a complete record from that organization. albuterol 108 (90 Base) MCG/ACT inhalerIndication s:Mild intermittent asthma without complication Inhale 2 puffs every 4 (four) hours if needed for wheezing. 18 g 12/02/2024 12/02/19 Active loratadine (Claritin) 10 MG tabletIndications :Seasonal allergies Take 1 tablet (10 mg) by mouth Once per day. 30 tablet 11 12/02/2024 12/02/19 Active Hospital, Clinic, or Other Facility Administered Medication Ordered Dose Route Frequency Start Date End Date Status lidocaine 2 % gelIndications:Encounter for initial insertion of intrauterine contraceptive device UR As needed 01/15/2025 Active Active Problems Problem Noted Date Diagnosed Date Other specified health status 01/09/2025 Overview (01/09/2025): -next comprehensive annual evaluation due after 01/09/26 -eye care facilitated by [facility] -dental home is encouraged -damian care proxy 01/09/25 Assessment & Plan (01/09/2025 9:38 AM EST): -next comprehensive annual evaluation due after 01/09/26 -eye care facilitated by [facility] -dental home is encouraged -damian care proxy [...] getting appt set up with Erin(middle school coach) -Side effects and danger signs reviewed -May have some breast tenderness or irregular bleeding for first few months. This is not worrisome. -Report headache, shortness of breath, chest pain, visual changes, abdominal pain, calf pain or jaundice. -Condoms offered Assessment & Plan (01/09/2025 9:40 AM EST): Family planning options discussed. Pt desires IUD. -Discussed getting appt set up with Erin(middle school coach) -Side effects and danger signs reviewed -May [...] ophthalmic ointment 12/02/24 - Prescribed Referred to [facility] 12/02/24 - ER precautions [...] Not currently established with therapist. -referred to [facility] 01/09/25 Assessment & Plan (01/09/2025 9:38 AM EST): Hx of severe depression in childhood. Not currently established with therapist. -referred to [facility] 01/09/25 Assessment & Plan (03/15/2023 5:06 PM EDT): Pt presents to therapy wanting to address grief that they she has avoided. Pt notes that she had two family losses over the past year. Generalized anxiety disorder 07/13/2022 Major depressive disorder, recurrent episode, mo derate 07/13/2022 Overview (01/09/2025): Hx of severe depression in childhood. Not currently established with therapist. -referred to [facility] 01/09/25 Assessment & Plan (01/09/2025 9:38 AM EST): Hx of severe depression in childhood. Not currently established with therapist. -referred to N 01/09/25 Assessment & Plan (04/26/2023 10:54 AM [...] 02/11/2019 01/09/2025 Mild depression 02/11/2019 01/09/2025 Encounters * This document contains information received from the source organization and may not represent a complete record from that organization. Date Type Department Care Team Description 02/16/2025 2:00 PM EDT Office Visit [facility] [address] [place] [address] Erin Britt CNM Checking of intrauterine device (Primary Dx); Vaginal irritation 02/16/2025 Telephone [facility] [address] [place] [address] Erin Britt CNM 02/16/2025 Travel 02/11/2025 Population Health Risk Score [facility] (C3) Department [address] [place] [phone] Provider, Population Health Generic 01/15/2025 9:00 AM EST Procedure Visit [facility] [address] [place] [phone] Erin Britt CNM Cervical cancer screening (Primary Dx); Encounter for initial insertion of intrauterine contraceptive device 01/15/2025 Travel 01/12/[address] [address] Merly Lu MD 01/09/2025 9:00 AM EST Office Visit [facility] [address] [place] [phone] Merly Lu MD Ankle stiffness, right (Primary [...] specified health status 01/09/2025 Travel 01/02/2025 Telephone [facility] [address] [place] [phone] Merly Lu MD Chart Prep 12/26/2024 Patient Outreach [address] [address] Merly Lu MD Care Coordination (CHW outreach for SDOH PT-1 and food needs-LVM ) 12/26/2024 Patient Outreach [address] [address] Merly Lu MD Pre-visit Planning (SDOH screening positive and Tobacco screening negative) 12/02/2024 11:00 AM EST Office Visit [facility] [address] [place] [phone] Merly Lu MD Hordeolum externum of right [...] Passive Smoke Exposure: Never Smokeless Tobacco: Never Tobacco Cessation:Counseling Given: [...] Sign Reading Time Taken Comments Blood Pressure 110/60 02/16/2025 2:02 PM EDT Pulse 75 02/16/2025 2:02 PM EDT Temperature 36.1 ??C (96.9 ??F) 02/16/2025 2:02 PM ED T Respiratory Rate 20 02/16/2025 2:02 PM EDT Oxygen Saturation 97% 02/16/2025 2:02 PM EDT Inhaled Oxygen Concentration - - Weight 72.2 kg (159 lb 3.2 oz) 02/16/2025 2:02 P M EDT Height 172.7 cm (5' 8 ) 02/16/2025 2:02 PM EDT Body Mass Index 24.21 02/16/2025 2:02 PM EDT Plan of Treatment Health Maintenance Due Date Last Done Comments SDOH Screening 12/26/2025 12/26/2024 Alcohol/Substance Use Screening 01/09/2026 01/09/2025 Depression Screening 01/09/2026 01/09/2025, 01/09/20 Family Planning (PISQ) 02/16/2026 02/16/2025 Tobacco Screening 02/16/2026 02/16/2025 Pap Smear 01/16/2028 01/15/2025, 09/13, 10/04/2021 DTaP/Tdap/Td Vaccines (8 - Td or Tdap) [...] for initial insertion of intrauterine contraceptive device PAP SMEAR Routine 01/15/2025 12:00 AM EST Cervical cancer screening POCT , URINE Routine 01/09/2025 11:41 AM [...] Major depressive disorder, recurrent episode, moderate (CMS/HCC) from Last 3 Months Results * POCT , urine manually resulted (01/15/2025 9:13 AM EST) Only the most recent of2 resultswithin the time period is included. Preg Test, Ur Negative Negative, Indeterminate, None Detected, Invalid, Specimen unsatisfactory for evaluation, Weakly Positive QC Media Lot # [id number] Lot# Expiration Date [id number] Urine 01/15/2025 9:13 AM EST Erin Britt CNM POINT OF CARE TEST ENTER/ EDIT ORDERABLES Final Result * Pap Smear (01/15/2025 12:00 AM EST) Swab Cervix uteri structure / Unknown 01/15/2025 01/16/2025 6:05 AM EST Narrative [facility] - 01/20/2025 9:43 AM EDT ----- ------- Name: Cristina Frey ?Age/Sex: 24/F ? : 2000 Unit#: [id number] ?? Attend Dr: ERIN BIRTT CNM ?Re01/15/25 ?Status: DEP REF ? [facility] ? Disch: ? ----- ------- SPEC : [id number] ? RECD: 01/16/25 ? STATUS: ??SOUT ? REQ NUM: [id number] ? KILLIAN: 01/15/25- ? SUBM DR: ERIN BRITT CNRuby ? ENTERED: ??01/16/25 ?SP TYPE: Pap Smr ?OTHR : ? ORDERED: ??Pap Smear ? Interpretation ?? Satisfactory for evaluation. ?? Negative for intraepithelial lesion or malignancy. ?? No endocervical cells seen. ?Clinical Information LMP: Previous PAP test: NIL 09/2021 Other surgery: Other history: ? Material Received ?? ThinPrep-Cervical ----- ------- Signed (signature on file) PAUL Sherman ([facility]) 01/20/25 0943 ? ----- ------- ? END OF REPORT ? us Erin Britt [facility] CYTOLOGY ORDERABLES F inal Result [facility] [address] [place] [phone] * Chlamydia/N. Gonorrhoeae RNA, TMA, Urine (01/09/2025 10:14 AM EST) Pathologist [facility] CT PCR NOT DETECTED Not Detect. [facility] Comment:A not detected test result [...] psychologicalconsequences. NG PCR NOT DETECTED Not Detect. [facility] Comment:A not detected test result [...] AM EST 01/09/2025 4:22 PM EST Narrative [facility] - 01/10/2025 4:43 PM EST Urine Merly Lu MD LAB MICROBIOLOGY - GENERAL ORDERABLES Final Result Performing Organization Address City/[facility]/ZIP Co de Phone Number [facility] [address] [place] [phone] * Syphilis Screen (01/09/2025 10:09 AM EST) Syphilis Screen Nonreactive Nonreactive [facility] Blood Venous blood specimen / Unknown 01/09/2025 10:09 AM EST 01/09/2025 11:04 AM EST Merly Lu MD LAB BLOOD ORDERABLES Final Result Performing Organization Address [facility] Co de Phone Number [facility] [address] [place] [phone] * TSH with Reflex to Free T4 (01/09/2025 10:09 AM EST) TSH reflex Free T4 0.43 0.32 - 4.0 uIU/mL [facility] Blood 01/09/2025 10:0 9 AM EST 01/09/2025 11:04 AM EST us Merly Lu MD LAB BLOOD ORDERABLES Final Result [facility] [address] [place] [phone] [phone] * (ABNORMAL) CBC auto differential (01/09/2025 10:09 AM EST) White Blood Count 4.7(L) 4.8 - 10.8 X10*3/uL [facility] Red Blood Count 4.86 4.20 - 5.50 X10*6/uL [facility] Hemoglobin 13.4 12.0 - 16.0 g/dl [facility] Hematocrit 40.9 37.0 - 47.0 % [facility] Mean Corpuscular Volume 84.2 80.0 - 98.0 fL [facility] Mean Corpuscular Hemoglobin 27.6 27.0 - 33.0 pg [facility] Mean Corpuscular HGB Conc 32.8 31.0 - 35.0 g/dl [facility] Red Cell Distribution Width 13.2 11.0 - 16.0 % [facility] Platelet Count 255 160 - 400 X10*3/uL [facility] Mean Platelet Volume 11.0 9.4 - 12.3 fL [facility] Neutrophils Percent Auto 51.5 45 - 73 % [facility] Imm Gran Pct Auto 0.4 0.0 - 0.4 % [facility] Lymphocytes Percent Auto 37.3 20 - 40 % [facility] Monocytes Percent Auto 8.9 2 - 11 % [facility] Eosinophils Percent Auto 1.3 0 - 4 % [facility] Basophils Percent Auto 0.6 0 - 2 % [facility] NRBC Pct Auto 0.0 0.0 - 0.2 /100WBC [facility] Neutrophils Absolute Auto 2.4 2.0 - 8.3 x10*3/uL [facility] Imm Gran Abs Auto 0.02 0.00 - 0.03 X10*3/uL [facility] Lymphocytes Absolute Auto 1.8 1.2 - 4.9 X10*3/uL [facility] Monocytes Absolute Auto 0.4 0.1 - 1.2 X10*3/uL [facility] Eosinophils Absolute Auto 0.1 0.0 - 0.4 X10*3/uL [facility] Basophils Absolute Auto 0.0 0.0 - 0.2 X10*3/uL [facility] NRBC Abs Auto 0.000 0.0 - 0.012 X10*3/uL [facility] Blood Venous blood specimen / Unknown 01/09/2025 10:09 AM EST 01/09/2025 11:04 AM EST Merly Lu MD LAB BLOOD ORDERABLES Final Result Performing Organization Address City/[facility] Co de Phone Number [facility] [address] [place] [phone] * Hepatitis C Antibody with Reflex to HCV, RNA, Quantitative, Real-Time PCR (01/09/2025 10:09 AM EST) Pathologist [facility] Hepatitis C Antibody Nonreactive Nonreactive [facility] Comment:Antibodies to HCV no t detected; does not exclude early acuteHCV infection. Blood Venous blood specimen / Unknown 01/09/2025 10:09 AM EST 01/09/2025 11:04 AM EST Merly Lu MD LAB BLOOD ORDERABLES Final Result Performing Organization Address [facility] Co de Phone Number [facility] [address] [place] [phone] * Iron And Total Iron Binding Capacity (01/09/2025 10:09 AM EST) Pathologist [facility] Iron 55 30 - 160 mcg/dL [facility] Total Iron Binding Capacity 329 228 - 428 mcg/dL [facility] Percent Iron Saturation 17 15 - 50 % [facility] Unsaturated Iron Binding 274 ug/dL [facility] Blood Venous blood specimen / Unknown 01/09/2025 10:09 AM EST 01/09/2025 11:04 AM EST Merly Lu MD LAB BLOOD ORDERABLES Final Result Performing Organization Address City/[facility]/ZIP Co de Phone Number [facility] [address] [place] [phone] * HIV-1/2 Antigen and Antibodies, Fourth Generation, with Reflexes (01/09/2025 10:09 AM EST) Pathologist [facility] HIV AB/AG Nonreactive Nonreactive [facility] Comment:HIV-1 p24 Ag and/or HIV-1/HIV-2 Ab not detected.A test result that is nonreactive does not exclude thepossibility of exposure to or infection with HIV-1 and/orHIV-2. Nonreactive results in this assay for individualswith prior exposure to HIV-1 and/or HIV-2 may be due toantigen and antibody levels that are below the limit ofdetection of this assay.The NeuroPace HIV Ag/Ab Combo assay result andsupplemental assay results should be interpreted inconjunction with the patient's clinical presentation,history and other laboratory results. If the results areinconsistent with clinical evidence, additional testing issuggested to confirm the result. Blood Venous blood specimen / Unknown 01/09/2025 10:09 AM EST 01/09/2025 11:04 AM EST Merly Lu MD LAB BLOOD ORDERABLES Final Result Performing Organization Address City/[facility]/ZIP Co de Phone Number [facility] [address] [place] [phone] * Ferritin (01/09/2025 10:09 AM EST) Pathologist [facility] Ferritin 10 10 - 122 ng/mL [facility] Blood Venous blood specimen / Unknown 01/09/2025 10:09 AM EST 01/09/2025 11:04 AM EST Merly Lu MD LAB BLOOD ORDERABLES Final Result Performing Organization Address [facility] Co de Phone Number [facility] [address] [place] [phone] * Vitamin B12 (01/09/2025 10:09 AM EST) Vitamin B12 418 200 - 900 pg/mL [facility] Comment:NORMAL 200-900 PG/ML INDETERMINATE 160-199 PG/ML DEFICIENT < 160 PG/ML Blood Venous blood specimen / Unknown 01/09/2025 10:09 AM EST 01/09/2025 11:04 AM EST Merly Lu MD LAB BLOOD ORDERABLES Final Result Performing Organization Address [facility] de Phone Number [facility] [address] [place] [phone] * Hepatic Function Panel (01/09/2025 10:09 AM EST) Bilirubin, Total 0.3 0.0 - 1.0 mg/dL [facility] Bilirubin, Direct 0.1 0.0 - 0.5 mg/dL [facility] Aspartate Amino Transferase 18 5 - 31 U/L [facility] Alanine Aminotransferase 12 0 - 31 U/L [facility] Total Protein 7.4 6.5 - 8.0 g/dL [facility] Albumin Level 4.0 3.5 - 5.0 g/dL [facility] Alkaline Phosphatase 70 39 - 117 U/L [facility] Blood Venous blood specimen / Unknown 01/09/2025 10:09 AM EST 01/09/2025 11:04 AM EST Merly Lu MD LAB BLOOD ORDERABLES Final Result Performing Organization Address [facility] Co de Phone Number [facility] [address] [place] [phone] * Lipid Panel, Standard (01/09/2025 10:09 AM EST) Triglycerides 52 <150 mg/dL [facility] Comment:Desirable Triglyceri de: less than 150 mg/dLBorderline High Triglyceride 150-199 mg/dLHigh Triglyceride: 200-499 mg/dLVery High Triglyceride: greater than or equal to 5OO mg/dL Cholesterol 151 <200 mg/dL [facility] Comment:Desirable Cholestero l: less than 200 mg/dLBorderline High Cholesterol: 200-239 mg/dLHigh Cholesterol: greater than 239 mg/dL LDL Cholesterol Calculated 74 <100 mg/dL [facility] Comment:Desirable LDL: less than 100 mg/dLNear Optimal/Above Optimal LDL: 110- 129 mg/dLBorderline High LDL: 130-159 mg/dLHigh LDL: 160-189 mg/dLVery High LDL: greater than or equal to 190 mg/dL HDL Cholesterol 67 >40 mg/dL [facility] Comment:Desirable HDL: great er than 40 mg/dL Note: This HDL assay may give artificially low results in patients with liver disease. Blood Venous blood specimen / Unknown 01/09/2025 10:09 AM EST 01/09/2025 11:04 AM EST Merly Lu MD LAB BLOOD ORDERABLES Final Result Performing Organization Address [facility] Co de Phone Number [facility] [address] [place] [phone] * (ABNORMAL) Basic Metabolic Panel (01/09/2025 10:09 AM EST) Sodium 138 135 - 145 mmol/L [facility] Potassium 3.9 3.3 - 5.1 mmol/L [facility] Chloride 107 96 - 108 mmol/L [facility] Carbon Dioxide 25 22 - 29 mmol/L [facility] Anion Gap 10(L) 12 - 20 [facility] Urea Nitrogen (BUN) 8(L) 9 - 16 mg/dL [facility] Creatinine, Serum 0.73 0.5 - 1.4 mg/dL [facility] Estimated Glomerular Filt Rate >60 [facility] Comment:Chronic Kidney Disea se: Estimated GFR < 60 mL/min/1.89x2Ohpxvv Kidney Disease: Estimated GFR < 15 mL/min/1.73m2 Glucose 80 60 - 115 mg/dL [facility] Calcium 9.4 8.4 - 10.2 mg/dL [facility] Blood Venous blood specimen / Unknown 01/09/2025 10:09 AM EST 01/09/2025 11:04 AM EST us Merly Lu MD LAB BLOOD ORDERABLES Final Result Performing Organization Address City/State/[facility] Co de Phone Number [facility] [address] [place] [phone] from Last 3 Months [facility] Advance Directives Documents on File Type Date Recorded Patient Wire Taper Expl anation Advance Directives and Living Will 01/13/2025 Health Care Proxy 01/09/25 Care Teams Professor Of Forest Planning Relationship Specialty Start Date End Date Seligman, MD Merly [address] [place] [phone] PCP - General Family Medicine 12/02/24
--- OUTSIDE RECORDS SUMMARY | 2025-02-16 18:51 | XMS_ITS | Encounter Summary ---
Author Organization [employer] Address [address] [facility] 7 [place] [address] Care Team Providers Care Dressmaker Helper Name Role Phone Merly Lu MD Primary Care Provider [phone] Reason for Visit * Reason Comments Follow-up Encounter Details Date Type Department Care Team ([facility] st Contact Info) Description 02/16/2025 2:00 PM EDT Office Visit [facility] [address] [place] [address] Erin Abdalla, [facility] [place] [address] [place] [address] Checking of intrauterine device (Primary Dx); Vaginal irritation Social History Tobacco Use Types Packs/Day Years [...] Mass Index 24.21 02/16/2025 2:02 PM EDT documented in this encounter Progress Notes * Erin Abdalla CNM - 02/16/2025 2:00 PM EDT Subjective Patient ID: Cristina Frey is a 24 y.o. female who presents for IUD check Geraldetta inserted 01/2025. Pap NIL from that visit. Gonorrhea/Chlamydia, HIV, syphilis, Hep C neg 12/2024. Not sexually active since IUD inserted. Notes some cramping off/on as well as some vaginal irritation. LMP 02/10/2025. Review of Systems Constitutional: Negative for chills and fever. Genitourinary: Negative for pelvic pain, vaginal discharge and vaginal pain. Objective BP 110/60 (BP Location: Left arm, Patient Position: Sitting, BP Cuff Size: Adult) Pulse 75 Temp96.9 ??F (36.1 ??C) (Temporal) Resp 20 Ht 5' 8 (1.727 m) Wt 159 lb 3.2 oz (72.2 kg) LMP 02/10/2025 (Exact Date) SpO2 97% BMI 24.21 kg/m?? Physical Exam Constitutional: Appearance: Normal appearance. Genitourinary: General: Normal vulva. Labia: Right: No rash, tenderness, lesion or injury. Left: No rash, tenderness, lesion or injury. Vagina: Normal. No signs of injury and foreign body. No vaginal discharge, erythema, tenderness, bleeding or lesions. Cervix: No cervical motion tenderness, discharge, friability, lesion, erythema, cervical bleeding or eversion. Uterus: Normal. Not enlarged and not tender. Adnexa: Right adnexa normal and left adnexa normal. Right: No mass, tenderness or fullness. Left: No mass, tenderness or fullness. Comments: IUD strings noted. Body of IUD nonpalpable. Menses noted. Neurological: Mental Status: She is alert. Psychiatric: Mood and Affect: Mood normal. Behavior: Behavior normal. Assessment/Plan Diagnoses and all orders for this visit: Checking of intrauterine device Reviewed normal side effects and danger signs. Report heavy bleeding, fever, chills or abdominal pain. Remove/replace IUD by 8 y from insertion. May remove any time before then if desired. Vaginal irritation - Bacterial Vaginosis Panel Bacterial vaginosis swab sent. Will treat positive results documented in this encounter Plan of Treatment Scheduled Orders Name Type Priority Associated Diagnoses Orde r Schedule Bacterial Vaginosis Panel Microbiology Routine Vaginal irritation Ordered: 02/16/2025 documented as of this encounter Visit Diagnoses Diagnosis Checking of intrauterine device- Primary Vaginal irritation Pruritus of genital organs documented in this encounter Additional Health Concerns Assessment Noted Time PHQ-9 Depression Total Score: 8 01/09/20 25 10:09 AM EST documented as of this encounter Care Teams Dressmaker Helper Relationship Specialty Start Date End Date Merly Lu MD [address] [place] [id number] PCP - General Family Medicine 12/02/24 documented as of this encounter
--- OUTSIDE RECORDS SUMMARY | 2025-02-16 18:51 | XMS_ITS | Encounter Summary ---
Author Organization [employer] Address [address] [place] [id number] Care Team Providers Care Artillery Officer Name Role Phone Daniela Maki NP Primary Care Provider Unav ailable Justin Tovar Unassigned Primary Care Provider Catherine vailable Marilyn Palencai MD Primary Care Provider [phone] Merly Lu MD Primary Care Provider [phone] Encounter Details Date Type Department Care Team (Latest Contact Info) Description 03/20/2019 Abstract [facility] CONVERSIONS Dental, Provider, DDS Social [...] on filedocumented in this encounter Care Teams Artillery Officer Relationship Specialty Start Date End Date Daniela Maki NP PCP - General Internal Medicine 10/04/21 05/27/23 Justin Tovar Unassigned [address] [place] [address] PCP - General Family Medicine 05/28/23 10/21/23 Marilyn Palencia MD [address] [place] [address] PCP - General Family Medicine 10/22/23 12/01/24 Merly uL MD [address] [place] [id number] PCP - General Family Medicine 12/02/24 documented as of this encounter
--- OUTSIDE RECORDS SUMMARY | 2025-02-16 18:51 | XMS_ITS | Encounter Summary ---
Author Organization [employer] Address [address] [facility] [address] [place] [address] Care Team Providers Care Multimedia Assistant Name Role Phone Merly Lu MD Primary Care Provider [phone] Encounter Details Date Type Department Care Team (Latest Contact Info) Description 02/16/2025 Travel Social History Tobacco Use Types Packs/Day [...] documented as of this encounter Care Teams Multimedia Assistant Relationship Specialty Start Date End Date Merly Lu MD [address] [place] [address] PCP - General Family Medicine 12/02/24 documented as of this encounter
[2025-02-17 11:04] LABS: Bacterial Vaginosis PCR POSITIVE (Negative); Candida Group PCR DETECTED (Not Detect); Candida glab krusei PCR NOT DETECTED (Not Detect); Trichomonas vaginalis PCR NOT DETECTED (Not Detect)
== END 2025-02-16 17:00 | disposition home or self-care (01) ==
LOC: HO.HHCLNP 16:59
PROVIDERS: Visit Provider Advanced Practice Midwife
DX: N89.8 Other specified noninflammatory disorders of vagina (principal)
CPT/HCPCS: 81515

== ENCOUNTER 2025-06-01 11:41 | Outpatient (RCR) | payer MEDICAID, SELFPAY | END 2025-06-01 14:31 | disposition home or self-care (01) | LOC: HO.PT 11:41 | PROVIDERS: PCP Family Medicine; Visit Provider Family Medicine | DX: M25.671 Stiffness of right ankle, not elsewhere classified (principal) | CPT/HCPCS: 97110; 97161; 97530 ==